=== PATIENT | female | born 1975 | race Caucasian/White ===

== ENCOUNTER 2017-01-02 23:01 | Observation (INO) ==
[2017-01-02] MEDS ORDERED: 0.9 % Sodium Chloride 1,000 ML IV ONE (23:23)
[2017-01-02] MEDS ORDERED: Ondansetron 4 MG/2 ML VIAL IV ONE (23:23)
[2017-01-02] MEDS ORDERED: MetroNIDAZOLE 500 MG/100 ML 500 MG/100 ML BAG IVPB ONE (23:23)
--- NOTE | 2017-01-02 23:34 | Emergency Department Note ---
Disposition Clinical Impression: Colitis, Strangulated omentum Disposition: Admitted As Inpatient Condition: Good Time of Disposition: 02:11 Abdominal Pain HPI - General Chief Complaint: ED Abdominal Pain Stated Complaint: abd pain Time Seen by Provider: 01/02/17 23:11 Source: patient Limitations: no limitations Nursing Notes Reviewed: Yes Vital Signs Reviewed: Yes - History of Present Illness HPI Narrative: 41-year-old female presents to the emergency department for evaluation of abdominal pain. Patient states that she was seen earlier today and was advised to be admitted to the hospital that she had issues at home with her animals and signed out AGAINST MEDICAL ADVICE. Patient was advised to return to the emergency department to be admitted after getting her personal affairs in order. Patient has been having right-sided abdominal pain for a few days. She states she's had increasing loose stools that she has been unable to control. On review of the workup earlier today shows a slightly elevated white blood cell count of 13. CT shows colitis of the right hemicolon and hepatic flexure as well as some areas of incarcerated omentum. Patient was discussed with on- call surgery Dr. Palacios. He states he will see the patient in consultation. The colitis and omental incarceration of fat are not surgical emergencies. He did request to have a consultation placed in the medical record prior to admission. Pt Subjective Complaint: abdominal pain Pain Scale: 9 - Related Data Home Medications Medication Instructions Recorded Confirmed Albuterol Sulfate [Proair Hfa] 2 puff IH Q4H PRN 01/02/17 01/02/17 Amitriptyline [Elavil] 25 mg PO HS 01/02/17 01/02/17 Gabapentin [Neurontin] 800 mg PO QID 01/02/17 01/02/17 Ibuprofen [Motrin] 800 mg PO TID 01/02/17 01/02/17 Olodaterol HCl [Striverdi Respimat] 2 puff IH DAILY 01/02/17 01/02/17 Oxygen 2 l NS HS 01/02/17 01/02/17 Ranitidine HCl [Zantac] 150 mg PO BID 01/02/17 01/02/17 Allergies Allergy/AdvReac Type Severity Reaction Status Date / Time Amoxicillin [From Augmentin] Allergy See Verified 01/02/17 23:07 Comments clavulanic acid Allergy See Verified 01/02/17 23:07 [From Augmentin] Comments All systems ED: reviewed and negative except as stated. Constitutional: Denies: fever Cardiovascular: Denies: chest pain Respiratory: Denies: cough, dyspnea Gastrointestinal: Reports: abdominal pain, nausea. Denies: vomiting Genitourinary: Denies: dysuria, hematuria Abdominal Pain PMH - Past Medical History Medical history: Reports: COPD, other Female Surgical History: Reports: , cholecystectomy, other Psychiatric history: Reports: no psych history - Social History Smoking status: Current every day smoker Alcohol use: Reports: none Drug use: Reports: none Physical Exam - General Limitations: no limitations General appearance: alert, in no apparent distress - Head Head exam: atraumatic, normocephalic - Eye Eye exam: Present: normal appearance - ENT ENT exam: normal exam, normal oropharynx, mucous membranes moist - Neck Neck exam: Present: normal inspection - Chest Chest inspection: Present: normal inspection, symmetric chest wall rise. Absent : tenderness - Respiratory Respiratory exam: Present: normal lung sounds bilaterally. Absent: respiratory distress - Cardiovascular Cardiovascular exam: Present: regular rate, normal rhythm, normal heart sounds - Abdominal Exam Abdominal exam: Present: tenderness, normal bowel sounds. Absent: distention, guarding, rebound, rigidity Abdominal tenderness: Present: RUQ, moderate - Extremities Exam Extremities exam: Present: normal inspection, full ROM. Absent: tenderness - Neurological Exam Neurological exam: Present: alert, oriented X3. Absent: motor sensory deficit - Psychiatric Psychiatric exam: Present: normal affect, normal mood - Skin Skin exam: Present: warm, dry, intact, normal color. Absent: cyanosis, diaphoresis Course - Reevaluation(s) Reevaluation #1: Discussed case with hospitalist service. Patient accepted for further evaluation. Requested collection of stool be sent for C. difficile. Patient stable at time of disposition. Time: 02:11 Vital Signs Temperature 98.5 F 01/02/17 23:03 Pulse Rate 95 01/02/17 23:03 Respiratory Rate 18 01/02/17 23:03 Blood Pressure 121/86 01/02/17 23:03 O2 Sat by Pulse Oximetry 94 L 01/02/17 23:03 Temperature 99.2 F 01/03/17 05:05 Pulse Rate 94 01/03/17 05:05 Respiratory Rate 15 01/03/17 05:05 Blood Pressure 104/67 01/03/17 05:05 O2 Sat by Pulse Oximetry 91 L 01/03/17 05:05 Oxygen Delivery Oxygen Delivery Nasal Cannula Attestation Statement - Attestation Attestation: I, Burke Pedraza MD, personally performed a history and physical exam of the patient and discussed their management with the resident. I reviewed the resident's note and agree with the documented findings, medical decision making , and plan of care. 41-year-old female presents to the emergency department with a complaint of right upper quadrant abdominal pain which started 2-3 days prior to arrival but was mild initially. The pain became much more severe today. She was seen here in the emergency department earlier today and had a CT scan of the abdomen along with a complete workup. She was found to have some colitis as well as a right upper abdominal ventral hernia with some incarcerated fat within the hernia. Surgery was consulted and admission was recommended however patient refused to stay at the time because she had to make arrangements for care of her dogs. She returns tonight with continued right upper quadrant pain which she states is getting steadily worse. Examination patient is a well-developed well-nourished female in no acute distress. She is alert and oriented 3. There is no cyanosis or diaphoresis. Breath sounds are clear and equal bilaterally. Heart regular rate and rhythm. Abdomen is moderately tender in the right upper quadrant with a firm tender masslike area in the right upper quadrant. Bowel sounds present. The hospitalist, Dr. Armijo, was consulted and accepted admission of the patient.
[2017-01-02] MEDS ORDERED: *HR* FentaNYL (PF) 100 MCG/2 ML VIAL IV ONE (23:46)
[2017-01-03] MEDS ORDERED: *HR* Promethazine 25 MG/ML VIAL IVP PRN (03:36)
[2017-01-03] MEDS ORDERED: Acetaminophen 325 MG TABLET PO PRN (03:36)
[2017-01-03] MEDS ORDERED: Naloxone 0.4 MG/ML INJ IVP PRN (03:36)
[2017-01-03] MEDS ORDERED: Pantoprazole 40 MG VIAL IVP STA (03:36)
[2017-01-03] MEDS ORDERED: Albuterol 2.5 MG/3 ML NEBULIZER IH PRN (03:43)
[2017-01-03] MEDS ORDERED: 0.9 % Sodium Chloride 1,000 ML IVC SCH (03:45)
[2017-01-03] MEDS ORDERED: Benzonatate 100 MG CAPSULE PO PRN (03:45)
[2017-01-03] MEDS: *HR* HYDROmorphone (PF) 1 MG/ML SYRINGE IVP PRN ×3 (04:27→12:24)
[2017-01-03] MEDS: Ipratropium/Albuterol Neb 3 ML IH SCH ×2 (05:00→11:41)
--- NOTE | 2017-01-03 05:04 | Internal Med History&Physical ---
<JacobsenMaria Ines Minerva - Last Filed: 01/03/17 05:41> Date of Encounter: 01/03/17 Time of Encounter: 03:30 Assessment and Plan (1) Hernia Current visit: No Status: Acute Patient with history of [address] with evidence of colitis involving ascending colon and hepatic flexure -right lateral ventral hernia is edematous fat and possibly incarcerated omentum -Small midline incisional hernia containing fat and a knuckle of small bowel Pain management Surgery consult (2) Colitis Current visit: Yes Status: Acute Continue IV hydration We will treat with Cipro and Flagyl Zofran prn C. difficile toxin screen, pending Stool culture, pending Ova and parasites, pending (3) Leukocytosis Current visit: Yes Status: Acute WBC 13.3 Lactate, pending Cultures, pending Continue hydration Qualifiers: Leukocytosis type: unspecified Qualified Code(s): D72.829 - Elevated white blood cell count, unspecified (4) COPD (chronic obstructive pulmonary disease) Current visit: Yes Status: Acute Continue supplemental oxygen Albuterol nebulizer prn Smoking cessation discussed Qualifiers: COPD type: unspecified COPD Qualified Code(s): J44.9 - Chronic obstructive pulmonary disease, unspecified (5) Acute kidney injury Current visit: Yes Status: Acute Creatinine 1.41 Creatinine 0.74 on 09/30/2016 IV hydration Follow renal function (6) Tobacco use disorder Current visit: Yes Status: Acute Discussed smoking cessation Continuous oxygen supplementation Continuous pulse oximetry NicoDerm patch 21 mg (7) DVT prophylaxis Current visit: Yes Status: Acute Heparin 5000 units twice a day Internal Medicine - H&P: HPI Chief complaint: Abdominal pain, nausea, vomiting, diarrhea Admitted From: Emergency Dept Plans for Post Hospital Care: Home History of present illness: Ms. Us is a 41 year old female who presents to the hospital with a two- day history of abdominal pain. Pain began around 7:30 AM and was rated a 2 out of 10. Patient tried ibuprofen 800 mg every 6 hours and Tylenol every 4 hours for the pain. Pain felt like a soreness in the right abdomen. Pain spread from right abdomen into right lower quadrant. Patient states that the abdomen feels like it is "jarring loose". Pain is worsened with cough. It is improved with pain medicine. Yesterday morning patient states that the pain continued to worsen. And by 11 AM the pain reached a threshold of 9/10. Patient states that she came to the emergency department, was evaluated, but had to take care of her 2 normal puppies before being admitted. Patient signed out AMA and then returned for admission. Patient admits diaphoresis, nausea, vomiting, diarrhea, mucus in stool. Denies fever or chills. Denies sick contacts or recent hospitalizations. Past Med Surg Social Fam HX - Past Medical History Medical history: COPD, other (Neuropathy, insomnia, back pain) Psychiatric history: no psych history - Past Surgical History Surgical History: (3), cholecystectomy, herniorrhaphy (2 umbilical hernia repairs, one hernia repair at site of ), orthopedic, other ( Back surgeries 2) - Social History Smoking Status: Current every day smoker (1 pack per day 25 years) Smokeless Tobacco Status: No Alcohol use: none Drug use: none Current living situation: Home - Independent Activity Level: Independent ambulation - Family History Mother Living Status: Age at : 64 Cause of : lung cancer Hx Family Cardiac Disorders: No Hx Family Respiratory Disorders: Yes (lung cancer) Hx Family Cancer: Yes (lung cancer) Hx Family GI Disorders: No Hx Family Genitourinary Disorders: No Hx Family Endocrine Disorder: No Hx Family Musculoskeletal Disorders: No Hx Family Neuromuscular Disorders: No Hx Family Neurologic Disorders: No Hx Family HEENT Disorders: No Hx Family Autoimmune Disorders: No Hx Family Reproductive Disorders: No Hx Family Psychosocial Disorders: No Hx Family Medical Disorders: No Father Age: 72 Living Status: Still Living Hx Family Cardiac Disorders: Yes (high blood pressure) Hx Family Respiratory Disorders: No Hx Family Cancer: No Hx Family GI Disorders: No Hx Family Genitourinary Disorders: No Hx Family Endocrine Disorder: No Hx Family Musculoskeletal Disorders: No Hx Family Neuromuscular Disorders: No Hx Family Neurologic Disorders: No Hx Family HEENT Disorders: No Hx Family Autoimmune Disorders: No Hx Family Reproductive Disorders: No Hx Family Psychosocial Disorders: No Hx Family Medical Disorders: No Internal Medicine - H&P: Meds Albuterol Sulfate [Proair Hfa] 2 puff IH Q4H PRN 01/02/17 [History] Amitriptyline [Elavil] 25 mg PO HS 01/02/17 [History] Gabapentin [Neurontin] 800 mg PO QID 01/02/17 [History] Ibuprofen [Motrin] 800 mg PO TID 01/02/17 [History] Olodaterol HCl [Striverdi Respimat] 2 puff IH DAILY 01/02/17 [History] Oxygen 2 l NS HS 01/02/17 [History] Ranitidine HCl [Zantac] 150 mg PO BID 01/02/17 [History] Allergies Amoxicillin [From Augmentin] Allergy (Verified 01/02/17 23:07) See Comments clavulanic acid [From Augmentin] Allergy (Verified 01/02/17 23:07) See Comments All Systems PM: A 10-system review of systems was performed and is negative for pertinent findings except as documented above in the HPI. - Constitutional Constitutional: excessive sweating, no chills, no fever(s) - EENT Eyes: no blurry vision - Respiratory Respiratory: cough, dyspnea (on 2 L of home oxygen. Patient states that she only uses oxygen at night despite being prescribed oxygen for use throughout day.) - Gastrointestinal Gastrointestinal: diarrhea (Stool has been oozing of rectum. She states that when she wipes after urinating she finds stool.), loose stools, nausea, vomiting , no hematochezia - Genitourinary Genitourinary: no dysuria, no hematuria - Musculoskeletal Musculoskeletal ROS IM: no muscle cramps, no myalgias - Neurological Neurological ROS: no dizziness, no headache(s) - Constitutional Vitals: Temp Pulse Resp BP Pulse Ox 0 F L 88 16 124/80 92 L 01/03/17 02:29 01/03/17 00:16 01/03/17 02:29 01/03/17 02:29 01/03/17 00:16 General appearance: Present: cooperative, A&O X 3, morbidly obese, pleasant, answers questions appropriately - Head Head exam: Present: atraumatic, normal inspection, normocephalic - Eye Eye exam: Present: EOMI - ENT ENT exam: Present: mucous membranes dry - Neck Neck exam general surgery: Present: full ROM, normal inspection - Respiratory Respiratory exam: Present: prolonged expiratory phase, wheezes (All lung otto) . Absent: CTAB, rhonchi Additional comments: Hoarse voice - Cardiovascular Cardiovascular exam: Present: RRR, +S1, +S2 - GI/Abdominal GI/Abdominal exam: Present: hypoactive bowel sounds, rebound, soft (With the exception of 5 cm mass in right abdomen that was exquisitely tender to palpation ), tenderness - Extremities Exam Extremities exam: Present: normal inspection. Absent: pedal edema - Psychiatric Psychiatric exam: Present: normal affect, normal mood - Skin Skin exam: Present: dry, warm Internal Med - H&P Results - Labs Labs: Laboratory Results - last 24 hr 01/03/17 04:11 PT 10.3 INR 1.0 - Impressions CT abdomen and pelvis without contrast Read by Matt John MD 01/02/17 Short segment acute colitis ascending colon and hepatic flexure Small adjacent right lateral ventral hernia containing edematous fat possibly incarcerated omental fat Small midline umbilical or incisional hernia containing fat and a knuckle of small bowel. Fat within the hernia appears edematous and may be incarcerated - Attending Attestation I examined this patient and my medical decision-making was reviewed with the GEOGRAPHIC INFORMATION SYSTEMS MANAGER/PA/Advanced Practice Nurse/Resident Physician. I agree with the documented findings, disposition and treatment plan as described except to the extent set forth below. <AleksanderErnesto Jerardo - Last Filed: 01/03/17 06:25> Date of Encounter: 01/03/17 Assessment and Plan (1) Intractable nausea and vomiting Current visit: Yes Status: Acute . Qualifiers: Vomiting type: cyclical vomiting Qualified Code(s): G43.A1 - Cyclical vomiting, intractable (2) Enterocolitis Current visit: Yes Status: Acute . (3) Infectious diarrheal disease Current visit: Yes Status: Acute . (4) Acute abdominal pain syndrome Current visit: Yes Status: Acute . (5) Neutrophilic leukocytosis Current visit: Yes Status: Acute (6) Acute kidney injury superimposed on CKD Current visit: Yes Status: Acute . (7) Dehydration with hyponatremia Current visit: Yes Status: Acute . (8) Obesity (BMI 30-39.9) Current visit: Yes Status: Chronic . (9) Incarcerated incisional hernia Current visit: Yes Status: Acute . (10) COPD (chronic obstructive pulmonary disease) with emphysema Current visit: Yes Status: Chronic . Qualifiers: Emphysema type: unspecified Qualified Code(s): J43.9 - Emphysema, unspecified (11) Nicotine dependence with nicotine-induced disorder Current visit: Yes Status: Chronic . Qualifiers: Nicotine product type: cigarettes Qualified Code(s): F17.219 - Nicotine dependence, cigarettes, with unspecified nicotine-induced disorders (12) Tobacco use disorder Current visit: Yes Status: Acute (13) Infectious gastroenteritis and colitis, unspecified Current visit: Yes Status: Acute . (14) Chronic respiratory failure with hypoxia and hypercapnia Current visit: Yes Status: Chronic . Internal Medicine - H&P: HPI History of present illness: Ms. Us is a 41 year old female The patient was visited and interviewed and examined. I examined this patient and my medical decision-making was reviewed with the Resident Physician. For this encounter, I have reviewed the documentation, treatment plan, and medical decision making; and I have had face to face time with this patient. I agree with the documented findings, disposition and treatment plan as described except to the extent set forth below. Cumulative Laboratory and radiographic data base was reviewed and considered and discussed. Pertinent ancillary medical records including ECW and PCI documentation, when available, was reviewed and considered. Given the patient's presenting concerns, past medical history, clinical findings and symptoms, she is admitted at this time to undergo further evaluation and disposition. Orders were written as per the computerized physician order editor system........................ Past Med Surg Social Fam HX - Past Medical History Source: old records reviewed Medical history: GERD - Past Surgical History Surgical History: other All Systems PM: A 10-system review of systems was performed and is negative for pertinent findings except as documented above in the HPI. - Constitutional Vitals: Temp Pulse Resp BP Pulse Ox 99.2 F 94 15 104/67 91 L 01/03/17 05:05 01/03/17 05:05 01/03/17 05:05 01/03/17 05:05 01/03/17 05:05 Internal Med - H&P Results - ABG Interpretation ABG results: 01/03/17 04:11 VBG pH 7.36 VBG pCO2 53 H VBG pO2 145 H VBG HCO3 29.9 H - Impressions Vital Signs Temp Pulse Resp BP Pulse Ox 01/03/17 05:05 99.2 F 94 15 104/67 91 L 01/03/17 05:00 18 95 01/03/17 03:03 97.6 F 85 14 111/75 100 01/03/17 02:29 0 F L 16 124/80 01/03/17 00:16 88 18 130/88 92 L 01/02/17 23:03 98.5 F 95 18 121/86 94 L Intake and Output 01/02/17 01/02/17 01/03/17 15:59 23:59 07:59 Intake Total 1100 / 1100 Balance 1100 / 1100 Intake: IV Fluids 1100 / 1100 0.9 % Sodium Chloride 1, 1000 / 1000 000 ML @ 3750 mls/hr IV BOLUS ONE Rx#:[id number] Flagyl 500 MG/100 ML 500 100 / 100 mg In 100 ml @ 100 mls/hr IVPB ONCE ONE Rx#: [id number] Other: Weight 89.811 kg 01/03/17 04:11 VBG pH 7.36 VBG pCO2 53 H VBG pO2 145 H VBG HCO3 29.9 H Abnormal lab results ESR 44 mm/hr (0-15) H 01/03/17 04:11 VBG pCO2 53 mmHg (41-51) H 01/03/17 04:11 VBG pO2 145 mmHg (25-40) H 01/03/17 04:11 VBG HCO3 29.9 mEq/L (21-27) H 01/03/17 04:11 C-Reactive Protein 177 mg/L (Less than 5) H 01/03/17 04:11 HDL Cholesterol 38 mg/dL (40-59) L 01/03/17 04:11 Allergies Allergy/AdvReac Type Severity Reaction Status Date / Time Amoxicillin [From Augmentin] Allergy See Verified 01/02/17 23:07 Comments clavulanic acid Allergy See Verified 01/02/17 23:07 [From Augmentin] Comments Laboratory Results ESR 44 mm/hr (0-15) H 01/03/17 04:11 PT 10.3 Seconds (9.4-12.1) 01/03/17 04:11 INR 1.0 01/03/17 04:11 APTT 27.6 Seconds (26.0-36.0) 01/03/17 04:11 VBG pH 7.36 pH Units (7.32-7.42) 01/03/17 04:11 VBG pCO2 53 mmHg (41-51) H 01/03/17 04:11 VBG pO2 145 mmHg (25-40) H 01/03/17 04:11 VBG HCO3 29.9 mEq/L (21-27) H 01/03/17 04:11 Est Mean Plasma Glucose 108 mg/dl 01/03/17 04:11 Hemoglobin A1c 5.4 % (-5.6) 01/03/17 04:11 Lactic Acid 0.6 mmol/L (0.5-2.2) 01/03/17 05:24 Phosphorus 2.9 mg/dL (2.3-4.7) 01/03/17 04:11 Magnesium 2.1 mg/dL (1.6-2.6) 01/03/17 04:11 C-Reactive Protein 177 mg/L (Less than 5) H 01/03/17 04:11 Triglycerides 86 mg/dL (< 150) 01/03/17 04:11 Cholesterol 111 mg/dL (< 200) 01/03/17 04:11 LDL Cholesterol, Calc 56 mg/dL (0-99) 01/03/17 04:11 VLDL Cholesterol, Calc 17 mg/dL (< 31) 01/03/17 04:11 HDL Cholesterol 38 mg/dL (40-59) L 01/03/17 04:11 Cholesterol/HDL Ratio 2.9 (0-4.9) 01/03/17 04:11 TSH 0.415 mcIU/mL (0.350-4.840) 01/03/17 04:11 - Attending Attestation My signature below is to certify that this patient is under my care and that I, or the Resident Physician working with me, has had a prfn-ol-droy encounter with this patient. Plan of care has been reviewed and discussed in detail with the patient. Questions addressed. Advance care directive discussion briefly address. Patient does not declare any healthcare restrictions at this time. Outpatient medication schedules will be reviewed, confirmed and facilitated as appropriate. Reconciliation of home treatments including adjustments, substitutions and reintroduction into the treatment regimen will address necessary maintenance therapies for chronic existing medical conditions. Smoking cessation counseling briefly address. Patient accepts nicotine substitution during this admission. Hospital course will be dependent on clinical findings, treatment response and potential consultative interventions. The patient is at risk for further acute clinical decline and morbidity given this presenting chief complaint, clinical findings and associated comorbidities. Condition is serious. Prognosis is cautiously optimistic. CODE STATUS is full.
[2017-01-03 05:16] LABS: Prothrombin Time 10.3 Seconds (9.4-12.1)
[2017-01-03 05:19] LABS: Activated Partial Thrombo Time 27.6 Seconds (26.0-36.0)
[2017-01-03 05:20] LABS: VBG HCO3 29.9 mEq/L (21-27); VBG PH 7.36 pH Units (7.32-7.42)
[2017-01-03 05:28] LABS: Hemoglobin A1C 5.4 %
[2017-01-03 05:33] LABS: Chol/HDL Ratio 2.9 (0-4.9); Magnesium 2.1 mg/dL (1.6-2.6); Phosphorous 2.9 mg/dL (2.3-4.7)
[2017-01-03] MEDS ORDERED: Famotidine 20 MG/2 ML VIAL IVP SCH (06:00)
[2017-01-03] MEDS ORDERED: *HR* Heparin 5,000 UNIT/ML VIAL SQ SCH (07:00)
[2017-01-03] MEDS: *HR* OxyCODONE Immed Rel 5 MG TABLET PO PRN ×2 (07:37→13:43)
[2017-01-03] MEDS: Gabapentin 400 MG CAPSULE PO SCH ×2 (07:38→12:23)
[2017-01-03] MEDS ORDERED: MetroNIDAZOLE 500 MG/100 ML 500 MG/100 ML BAG IVPB SCH (08:00)
--- NOTE | 2017-01-03 08:01 | Internal Med Progress Note ---
Date of Encounter: 01/03/17 Time of Encounter: 08:01 - Constitutional Vitals: Temp Pulse Resp BP Pulse Ox 99.1 F 67 17 104/69 96 01/03/17 06:45 01/03/17 06:45 01/03/17 06:45 01/03/17 06:45 01/03/17 07:00 General appearance: Present: cooperative, A&O X 3, morbidly obese, pleasant, answers questions appropriately Internal Medicine: Result - ABG Interpretation ABG results: PT/INR, D-dimer PT 10.3 Seconds (9.4-12.1) 01/03/17 04:11 Consult Discharge Plan - Plan Referrals: Abdoul Lara DO [Primary Care Provider] -
[2017-01-03] MEDS ORDERED: Nicotine 21 MG PATCH.TD24 TD SCH (09:00)
[2017-01-03 10:19] VITALS: BP 128/97
--- NOTE | 2017-01-03 10:22 | General Surgery Consult Note ---
Date of Encounter: 01/03/17 Time of Encounter: 10:15 Assessment and Plan (1) Incarcerated incisional hernia Current Visit: Yes Status: Acute The previously repaired midline hernia has a smaller area of recurrence containing fat. There is no involvement of small bowel. There is no evidence of bowel obstruction associated with the hernia. The midline incisional hernia is noncontributory to the patient's acute episode of right-sided colitis (2) Colitis Current Visit: Yes Status: Acute The patient has right sided colitis. The differential diagnosis includes autoimmune, infectious, ischemic colitis. I will be glad to follow along with you during the differential diagnosis and provide any surgical treatment should this become necessary. History of Present Illness Consult date: 01/03/17 History of present illness: The patient is a obese 41-year-old female who has experienced worsening right- sided abdominal pain over the last several days. Pain got to the point where she required narcotic to control the discomfort. She presented to the emergency room and a CAT scan demonstrated colitis as well as evidence of previous abdominal wall hernias. She is admitted to the hospital for close clinical follow-up and differential diagnosis of acute right sided colitis. She has not previously had abdominal pain of this type. She has no nausea or vomiting. Past Med Surg Social Fam HX - Past Medical History Medical history: COPD, other Psychiatric history: no psych history - Past Surgical History Surgical History: other - Social History Smoking Status: Current every day smoker Smokeless Tobacco Status: No Alcohol use: none Drug use: none - Family History Mother Living Status: Age at : 64 Cause of : lung cancer Hx Family Cardiac Disorders: No Hx Family Respiratory Disorders: Yes (lung cancer) Hx Family Cancer: Yes (lung cancer) Hx Family GI Disorders: No Hx Family Genitourinary Disorders: No Hx Family Endocrine Disorder: No Hx Family Musculoskeletal Disorders: No Hx Family Neuromuscular Disorders: No Hx Family Neurologic Disorders: No Hx Family HEENT Disorders: No Hx Family Autoimmune Disorders: No Hx Family Reproductive Disorders: No Hx Family Psychosocial Disorders: No Hx Family Medical Disorders: No Father Age: 72 Living Status: Still Living Hx Family Cardiac Disorders: Yes (high blood pressure) Hx Family Respiratory Disorders: No Hx Family Cancer: No Hx Family GI Disorders: No Hx Family Genitourinary Disorders: No Hx Family Endocrine Disorder: No Hx Family Musculoskeletal Disorders: No Hx Family Neuromuscular Disorders: No Hx Family Neurologic Disorders: No Hx Family HEENT Disorders: No Hx Family Autoimmune Disorders: No Hx Family Reproductive Disorders: No Hx Family Psychosocial Disorders: No Hx Family Medical Disorders: No Medications and Allergies Albuterol Sulfate [Proair Hfa] 2 puff IH Q4H PRN 01/02/17 [History] Amitriptyline [Elavil] 25 mg PO HS 01/02/17 [History] Gabapentin [Neurontin] 800 mg PO QID 01/02/17 [History] Ibuprofen [Motrin] 800 mg PO TID 01/02/17 [History] Olodaterol HCl [Striverdi Respimat] 2 puff IH DAILY 01/02/17 [History] Oxygen 2 l NS HS 01/02/17 [History] Ranitidine HCl [Zantac] 150 mg PO BID 01/02/17 [History] Allergies Amoxicillin [From Augmentin] Allergy (Verified 01/02/17 23:07) See Comments clavulanic acid [From Augmentin] Allergy (Verified 01/02/17 23:07) See Comments Review of Systems All systems PM: A 10-system review of systems was performed and is negative for pertinent findings except as documented above in the HPI. No additional findings for complete review of systems. General Surgery Exam Initial Vital Signs Temp Pulse Resp BP Pulse Ox 98.5 F 95 18 121/86 94 L 01/02/17 23:03 01/02/17 23:03 01/02/17 23:03 01/02/17 23:03 01/02/17 23:03 - General physical appearance well developed, well nourished, no distress, obese - Neck no masses, no bruits, trachea midline, no lymphadectomy, no venous distension - Respiratory wheezing: bilateral (Decreased breath sounds as well as coarse rhonchi bilaterally) - Cardiovascular Cardiovascular exam: Present: RRR, 15, 16 - Abdomen Abdomen general surgery: Present: tender (The patient has pain to moderate palpation with involuntary guarding in the right upper quadrant.) Abdominal Tenderness: Present: RUQ - Neurologic Present: CN 2-12 grossly intact, normal coordination, normal sensation - Psychiatric Psychiatric general surgery: Present: appropriate, oriented to person, oriented to place, oriented to time, speech is normal, memory intact Exam Initial Vital Signs Temp Pulse Resp BP Pulse Ox 98.5 F 95 18 121/86 94 L 01/02/17 23:03 01/02/17 23:03 01/02/17 23:03 01/02/17 23:03 01/02/17 23:03 Results - Labs Abnormal lab results ESR 44 mm/hr (0-15) H 01/03/17 04:11 VBG pCO2 53 mmHg (41-51) H 01/03/17 04:11 VBG pO2 145 mmHg (25-40) H 01/03/17 04:11 VBG HCO3 29.9 mEq/L (21-27) H 01/03/17 04:11 C-Reactive Protein 177 mg/L (Less than 5) H 01/03/17 04:11 HDL Cholesterol 38 mg/dL (40-59) L 01/03/17 04:11 Diabetes panel 01/03/17 01/03/17 Range/Units 04:11 04:11 Hemoglobin A1c 5.4 ( - 5.6) % Triglycerides 86 (< 150) mg/dL HDL Cholesterol 38 L (40-59) mg/dL Thyroid panel 01/03/17 Range/Units 04:11 TSH 0.415 (0.350-4.840) mcIU/mL Calcium panel 01/03/17 Range/Units 04:11 Phosphorus 2.9 (2.3-4.7) mg/dL Pituitary panel 01/03/17 Range/Units 04:11 TSH 0.415 (0.350-4.840) mcIU/mL All other labs normal. - Imaging CT scan - abdomen: image reviewed (I personally reviewed the CAT scan of the abdomen. The patient does have right sided colitis. She has a small fat- containing hernia in the right upper quadrant and a small recurrent fat- containing midline incisional hernia containing fat only with no associated bowel obstruction. The 2 hernias do not appear to be involved with the inflammatory process involving the right colon.) Consult Discharge Plan - Plan Referrals: Abdoul Lara DO [Primary Care Provider] -
--- NOTE | 2017-01-03 16:11 | Discharge Summary ---
<Matt Baislio - Last Filed: 01/03/17 16:16> Date of Encounter: 01/03/17 Time of Encounter: 16:06 - Discharge Diagnosis (1) Left against medical advice Priority: Primary Status: Acute (2) Hernia Priority: Primary Status: Acute (3) Acute kidney injury Priority: Primary Status: Acute (4) Colitis Priority: Primary Status: Acute (5) COPD (chronic obstructive pulmonary disease) Priority: Secondary Status: Acute Qualifiers: COPD type: unspecified COPD Qualified Code(s): J44.9 - Chronic obstructive pulmonary disease, unspecified (6) Obesity (BMI 30-39.9) Priority: Secondary Status: Chronic (7) DVT prophylaxis Priority: Secondary Status: Acute - Discharge Medications Prescriptions: Ciprofloxacin HCl [Cipro] 500 mg PO BID 10 Days MetroNIDAZOLE [Flagyl] 500 mg PO TID 10 Days OxyCODONE Immed Rel [Roxicodone 5 MG] 10 mg PO Q6HR PRN #15 tablet PRN Reason: Moderate Pain (4-6) Home Medications: Albuterol Sulfate [Proair Hfa] 2 puff IH Q4H PRN 01/02/17 [History] Amitriptyline [Elavil] 25 mg PO HS 01/02/17 [History] Gabapentin [Neurontin] 800 mg PO QID 01/02/17 [History] Olodaterol HCl [Striverdi Respimat] 2 puff IH DAILY 01/02/17 [History] Oxygen 2 l NS HS 01/02/17 [History] Ranitidine HCl [Zantac] 150 mg PO BID 01/02/17 [History] Ciprofloxacin HCl [Cipro] 500 mg PO BID 10 Days 01/03/17 [Rx] MetroNIDAZOLE [Flagyl] 500 mg PO TID 10 Days 01/03/17 [Rx] OxyCODONE Immed Rel [Roxicodone 5 MG] 10 mg PO Q6HR PRN #15 tablet 01/03/17 [Rx] Allergies/Adverse Reactions: Allergies Amoxicillin [From Augmentin] Allergy (Verified 01/02/17 23:07) See Comments clavulanic acid [From Augmentin] Allergy (Verified 01/02/17 23:07) See Comments Procedures/tests Complete & Pending: Procedures Performed prior 72 hours Category Date Time Status ECG 12 lead ECG [ECG] AM 0600 Y 01/03/17 06:00 Ordered Date of admission: 01/03/17 02:13 Primary care physician: Abdoul Lara Consults: 01/03/17 03:43 Consult to Nurse Navigator [CONS] Routine Comment: Discharging clinician: Matt Basilio Anticipated date of discharge: 01/03/17 - Patient Status Disposition: Home, Self-Care Condition: Serious Functional capacity at discharge: bed bound Overall status at discharge: patient is not back to baseline - Discharge Instructions Follow Up With: Dejan Palacios MD [Partnered Physician] - (Please schedule an appointment for hospital d/c f/u (pt left AMA) for incarcerated incisional hernia. Web Request sent 01/03/17.) Abdoul Lara DO [Primary Care Provider] - (F/u with her PCP w/in a week for hospital d/c f/u (pt left AMA), colitis and DAVID. Patient will call primary for follow up non [facility] provider. ) - Diet and Activity Activity: other (bed rest) Diet: other (bowel rest for now, when symptoms get better, start with clear liquid diet) Hospital course: Ms. Us is a 41 year old female with hx of COPD and prior 2 hernia repairs came to the ER with cc of right sided abd pain, CT abd showed evidence of colitis involving ascending colon and hepatic flexure, right lateral ventral hernia is edematous fat and possibly incarcerated omentum, and small midline incisional hernia containing fat and a knuckle of small bowel. She was started on cipro and flagyl IV for the treatment, surgery was consulted, she was made NPO with IV fluid, lab showed elevated inflammatory markers along with DAVID. Surgery saw the pt next day and thought that no surgery is necessary at this time, no involvement of small bowel nor bowel obstruction associated with hernia , while we were working on her colitis, she signed the against medical advice from and left AMA for personal reason that she does not wish to share with us. All the risks and consequences of leaving AMA were explained to pt such as perforated bowel from colitis, septic shock and even , pt showed understandings and still wanted to leave AMA. PO abxs prescriptions were given and appropriate follow-up will be made with her PCP and surgery. - Time Spent with Patient Total time spent providing and/or coordinating discharge services: - Constitutional Vitals: Temp Pulse Resp BP Pulse Ox 98.4 F 78 17 128/97 97 01/03/17 10:18 01/03/17 10:18 01/03/17 10:18 01/03/17 10:18 01/03/17 10:18 General appearance: Present: cooperative, A&O X 3, morbidly obese, pleasant, answers questions appropriately - Head Head exam: Present: atraumatic, normocephalic - Eye Eye exam: Present: PERRL, conjuntiva pink, sclera anicteric Pupils: Present: PERRL - Neck Neck exam general surgery: Present: supple, trachea midline. Absent: lymphadenopathy - Respiratory Respiratory exam: Present: CTAB. Absent: accessory muscle use, rales, rhonchi, wheezes - Cardiovascular Cardiovascular exam: Present: RRR, +S1, +S2. Absent: diastolic murmur, gallop, rubs, systolic murmur - GI/Abdominal GI/Abdominal exam: Present: normal bowel sounds, soft, tenderness (to palpation on RLQ), no peritoneal signs. Absent: distended - Extremities Exam Extremities exam: Present: warm, radial pulses palpable and symetrical. Absent : calf tenderness, cyanotic, pedal edema - Neurological Exam Neurological exam: Present: CN II-XII intact, oriented X3, no focal deficits. Absent: pronater drift, facial droop, speech deficit - Skin Skin exam: Present: dry, intact <Keith Venegas R - Last Filed: 01/03/17 18:01> Date of Encounter: 01/03/17 Procedures/tests Complete & Pending: Procedures Performed prior 72 hours Category Date Time Status ECG 12 lead ECG [ECG] AM 0600 Y 01/03/17 06:00 Ordered Date of admission: 01/03/17 02:13 Primary care physician: Abdoul Lara Consults: 01/03/17 03:43 Consult to Nurse Navigator [CONS] Routine Comment: Hospital course: Ms. Us is a 41 year old female - Time Spent with Patient Total time spent providing and/or coordinating discharge services: - Constitutional Vitals: Temp Pulse Resp BP Pulse Ox 98.4 F 78 17 128/97 97 01/03/17 10:18 01/03/17 10:18 01/03/17 10:18 01/03/17 10:18 01/03/17 10:18 - Attending Attestation I examined this patient and my medical decision-making was reviewed with the [facility] SUPERVISOR/PA/Advanced Practice Nurse/Resident Physician. I agree with the documented findings, disposition and treatment plan as described except to the extent set forth below. Patient decided to sign out AMA. She is alert and able to make decisions.
[2017-01-03] MEDS ORDERED: NON-FORMULARY MEDICATION 1 EACH EACH (Oxygen [Oxygen] 2 L) NS SCH (21:00)
== END 2017-01-03 16:16 | disposition left against medical advice (07) ==
LOC: 3ANU 23:01 → EMEROO 23:01 → 3ANU 01-03 02:31
PROVIDERS: ADMIT Internal Medicine; ATTEND Internal Medicine

== ENCOUNTER 2020-04-03 01:47 | Inpatient (IN) ==
[2020-04-03] MEDS ORDERED: Artificial Tears SOLN 15 ML BOTTLE BOTH EYES PRN (07:50)
[2020-04-03] MEDS ORDERED: Naloxone 0.4 MG/ML INJ IVP PRN (07:50)
[2020-04-03] MEDS ORDERED: Aminoglycoside Consult 1 EACH MC ONE (08:15)
[2020-04-03] MEDS: FentaNYL (PF) 1,000 MCG in 0.9 % Sodium Chloride 80 ML IVC SCH ×2 (09:01→18:17)
[2020-04-03] MEDS: Artificial Tears SOLN 15 ML BOTTLE BOTH EYES SCH ×5 (09:02→23:18)
[2020-04-03] MEDS: Norepinephrine 4 MG in 0.9 % Sodium Chloride 250 ML IVC SCH (09:03)
[2020-04-03] MEDS: Cefepime HCl 2,000 MG in Water for inj. (sterile) 20 ML IVP SCH ×3 (09:08→23:18)
[2020-04-03] MEDS: Chlorhexidine Rinse 15 ML MOUTHWASH MM SCH ×2 (09:08→19:30)
[2020-04-03] MEDS: Doxycycline 100 MG in 0.9 % Sodium Chloride Mini Bag 100 ML IVPB SCH ×2 (09:09→18:17)
[2020-04-03] MEDS: Pantoprazole 40 MG VIAL IVP SCH (09:09)
[2020-04-03] MEDS: Budesonide/Formoterol 160/4.5 1 PUFF INH IH SCH ×2 (09:38→22:02)
[2020-04-03 10:01] LABS: ABG Base Excess 9 mEq/L (-2 to 3); ABG HCO3 39 mEq/L (21-27); ABG Oxygen Saturation 91 % (95-98); ABG PCO2 75 mmHg (35-45); ABG PH 7.33 pH Units (7.32-7.45); ABG PO2 69 mmHg (85-104); ABG TCO2 41 mEq/L (20-26); Blood Gas Modality VC; Blood Gas VT 500 cc
[2020-04-03 10:27] LABS: Basophils % 0.1 %; Eosinophils % 0.1 %; Hematocrit 43.6 % (35.3-44.9); Hemoglobin 12.8 g/dL (11.5-15.4); Immature Granulocytes % 0.7 % (0-4); Lymphocytes # 0.8 K/mcL (0.6-4.6); Mean Corpuscular HGB Conc 29.4 g/dL (31.6-35.5); Mean Corpuscular Hemoglobin 30.8 pg (28.0-33.3); Mean Corpuscular Volume 105.1 fL (83.0-100.0); Mean Platelet Volume 10.7 fL (9.4-12.4); Monocytes # 1.1 K/mcL (0.0-1.3); Monocytes % 12.8 %; Neutrophils # 6.8 K/mcL (1.6-8.9); Platelet Count 150 K/mcL (140-400); Red Blood Count 4.15 M/mcL (3.82-4.97); Red Cell Distribution Width 13.9 % (11.5-14.5); Segmented Neutrophils % 77.3 %; White Blood Count 8.8 K/mcL (4.3-11.1)
[2020-04-03 10:47] LABS: Bilirubin,Urine Negative (Negative); Blood,Urine Negative (Negative); Clarity,Urine Clear (Clear); Color,Urine Yellow (Yellow); Glucose,Urine (UA) Normal (Normal); Ketones,Urine Trace mg/dL (Negative); Leukocyte Esterase,Urine Negative (Negative); Nitrite,Urine Negative (Negative); PH,Urine 6.5 pH Units (5.0-8.0); Protein,Urine 100 mg/dL (Neg-Trace); Specific Gravity,Urine 1.024 (1.010-1.025); Urobilinogen,Urine Normal (Normal)
[2020-04-03 10:49] LABS: Troponin I < 0.03 ng/mL (< 0.04)
[2020-04-03 10:50] LABS: Bacteria,Urine Few per hpf (None-Few); Hyaline Casts,Urine Few per lpf (None-Few); Squamous Epithelial Cell,Urine Many per lpf (None-Few); WBC,Urine 0-3 per hpf (0-3)
[2020-04-03 10:59] LABS: Alanine Aminotransferase 12 Units/L (7-52); Albumin 3.4 g/dL (3.5-5.7); Albumin/Globulin Ratio 1.3 (1.1-2.2); Alkaline Phosphatase 48 Units/L (34-104); Aspartate Amino Transferase 24 Units/L (13-39); BUN/Creatinine Ratio 16 (6-26); Bilirubin,Direct 0.1 mg/dL (0.0-0.2); Bilirubin,Indirect 0.2 mg/dL (0.0-1.0); Bilirubin,Total 0.3 mg/dL (0.3-1.0); Blood Urea Nitrogen 15 mg/dL (6-20); Calcium 8.4 mg/dL (8.6-10.3); Carbon Dioxide 38 mEq/L (23-29); Chloride 96 mEq/L (98-107); Globulin 2.7 g/dL (2.4-3.5); Glucose 113 mg/dL (70-105); Granular Casts,Urine Few per lpf (None Seen); Magnesium 1.6 mg/dL (1.6-2.6); Osmolality,Calculated 294 (280-300); Phosphorous 2.6 mg/dL (2.7-4.5); Potassium 4.2 mEq/L (3.5-5.1); Sodium 141 mEq/L (136-145); Total Protein 6.1 g/dL (6.4-8.9); eGFR For African Americans > 60 (> 60); eGFR For Non-African Americans > 60 (> 60)
[2020-04-03 11:02] LABS: Amphetamine Screen,Urine Negative ng/mL (Cutoff=1000); Barbiturate Screen,Urine Negative ng/mL (Cutoff=200); Benzodiazepines Screen,Urine Negative ng/mL (Cutoff=200); Cannabinoid Screen,Urine Negative ng/mL (Cutoff = 50); Cocaine Screen,Urine Negative ng/mL (Cutoff= 300); Opiate Screen,Urine Negative ng/mL (Cutoff=300); Phencyclidine Screen,Urine Negative ng/mL (Cutoff=25)
[2020-04-03] MEDS ORDERED: Potassium Chloride 40 MEQ/200 ML BAG IVPB PRN (11:47)
[2020-04-03] MEDS ORDERED: Potassium Phosphate 44 MEQ in 0.9 % Sodium Chloride 250 ML IVPB PRN (11:47)
[2020-04-03] MEDS ORDERED: Calcium Gluconate 1gm/50mL 1 GM/50 ML BAG IVPB PRN (11:47)
[2020-04-03] MEDS ORDERED: Ipratropium/Albuterol Neb 3 ML ONE (12:56)
[2020-04-03] MEDS: *HR* Heparin 5,000 UNIT/ML VIAL SQ SCH ×2 (13:39→21:09)
[2020-04-03] MEDS ORDERED: Ipratropium/Albuterol Neb 3 ML IH ONE (14:28)
[2020-04-03] MEDS: Acetaminophen 325 MG TABLET PO PRN ×2 (15:34→23:18)
[2020-04-03] MEDS: methylPREDNISolone 125 MG/2 ML VIAL IVP SCH (19:31)
[2020-04-03] MEDS ORDERED: Ipratropium/Albuterol Neb 3 ML IH SCH (22:00)
[2020-04-03] MEDS: Ipratropium/Albuterol Neb 3 ML IH SCH (23:14)
[2020-04-04] MEDS: FentaNYL (PF) 1,000 MCG in 0.9 % Sodium Chloride 80 ML IVC SCH (03:06)
[2020-04-04] MEDS: Artificial Tears SOLN 15 ML BOTTLE BOTH EYES SCH ×5 (03:06→19:32)
[2020-04-04 03:39] LABS: Hematocrit 40.8 % (35.3-44.9); Mean Platelet Volume 11.2 fL (9.4-12.4); Monocytes % 3.1 %
[2020-04-04 03:41] LABS: Basophils % 0.2 %; Hemoglobin 12.2 g/dL (11.5-15.4); Immature Granulocytes % 0.5 % (0-4); Immature Platelets 5.9 % (1.1-6.1); Lymphocytes # 0.5 K/mcL (0.6-4.6); Lymphocytes % 9.5 %; Mean Corpuscular HGB Conc 29.9 g/dL (31.6-35.5); Mean Corpuscular Volume 103.6 fL (83.0-100.0); Monocytes # 0.2 K/mcL (0.0-1.3); Platelet Count 120 K/mcL (140-400); Red Blood Count 3.94 M/mcL (3.82-4.97); Red Cell Distribution Width 14.3 % (11.5-14.5); Segmented Neutrophils % 86.7 %; White Blood Count 5.5 K/mcL (4.3-11.1)
[2020-04-04 03:43] LABS: Neutrophils # 4.8 K/mcL (1.6-8.9)
[2020-04-04 03:59] LABS: Calcium 8.3 mg/dL (8.6-10.3); Magnesium 1.9 mg/dL (1.6-2.6); Phosphorous 3.5 mg/dL (2.7-4.5); Potassium 4.2 mEq/L (3.5-5.1)
[2020-04-04] MEDS: Ipratropium/Albuterol Neb 3 ML IH SCH ×6 (04:02→20:42)
[2020-04-04 04:22] LABS: ABG Base Excess 7 mEq/L (-2 to 3); ABG HCO3 35 mEq/L (21-27); ABG Oxygen Saturation 89 % (95-98); ABG PCO2 66 mmHg (35-45); ABG PH 7.33 pH Units (7.32-7.45); ABG PO2 63 mmHg (85-104); ABG TCO2 37 mEq/L (20-26); Blood Gas VT 550 cc
[2020-04-04] MEDS: Acetaminophen 325 MG TABLET PO PRN (05:27)
[2020-04-04] MEDS: Doxycycline 100 MG in 0.9 % Sodium Chloride Mini Bag 100 ML IVPB SCH ×2 (05:31→16:12)
[2020-04-04] MEDS: *HR* Heparin 5,000 UNIT/ML VIAL SQ SCH ×3 (05:31→19:37)
[2020-04-04] MEDS: methylPREDNISolone 125 MG/2 ML VIAL IVP SCH (05:31)
[2020-04-04] MEDS: Budesonide/Formoterol 160/4.5 1 PUFF INH IH SCH ×2 (07:05→22:01)
[2020-04-04] MEDS: Norepinephrine 4 MG in 0.9 % Sodium Chloride 250 ML IVC SCH (07:38)
[2020-04-04] MEDS: Cefepime HCl 2,000 MG in Water for inj. (sterile) 20 ML IVP SCH ×3 (07:44→23:12)
[2020-04-04] MEDS: Chlorhexidine Rinse 15 ML MOUTHWASH MM SCH ×2 (07:45→19:32)
[2020-04-04] MEDS: Pantoprazole 40 MG VIAL IVP SCH (07:46)
[2020-04-04] MEDS ORDERED: Albuterol 2.5 MG/3 ML NEBULIZER IH PRN (16:08)
[2020-04-04] MEDS ORDERED: Ipratropium/Albuterol Neb 3 ML IH ONE (16:30)
[2020-04-04] MEDS ORDERED: Dexmedetomidine HCl 400 MCG/100 ML MLS IVC ONE (17:44)
[2020-04-04] MEDS: Dexmedetomidine HCl 400 MCG/100 ML MLS IVC SCH ×2 (17:50→23:26)
[2020-04-04] MEDS ORDERED: MethylPREDNISolone 40 MG/ML VIAL IVP SCH (18:00)
[2020-04-04] MEDS: Racepinephrine Neb 0.5 ML VIAL IH SCH (18:06)
[2020-04-04] MEDS: Nystatin SUSP 5 ML UD.LIQ PO SCH (23:12)
[2020-04-05] MEDS: Ipratropium/Albuterol Neb 3 ML IH SCH ×7 (00:04→20:31)
[2020-04-05] MEDS: Dexmedetomidine HCl 400 MCG/100 ML MLS IVC SCH ×2 (04:08→08:55)
[2020-04-05 04:30] LABS: Basophils % 0.1 %; Hematocrit 40.4 % (35.3-44.9); Hemoglobin 11.7 g/dL (11.5-15.4); Immature Granulocytes % 0.7 % (0-4); Lymphocytes # 0.9 K/mcL (0.6-4.6); Lymphocytes % 13.7 %; Mean Corpuscular Hemoglobin 29.9 pg (28.0-33.3); Mean Corpuscular Volume 103.3 fL (83.0-100.0); Mean Platelet Volume 10.9 fL (9.4-12.4); Monocytes # 0.6 K/mcL (0.0-1.3); Monocytes % 8.8 %; Neutrophils # 5.1 K/mcL (1.6-8.9); Platelet Count 138 K/mcL (140-400); Red Blood Count 3.91 M/mcL (3.82-4.97); Segmented Neutrophils % 76.7 %; White Blood Count 6.7 K/mcL (4.3-11.1)
[2020-04-05 04:48] LABS: Platelet Estimate Slight Decrease (Normal)
[2020-04-05 04:49] LABS: BUN/Creatinine Ratio 38 (6-26); Blood Urea Nitrogen 35 mg/dL (6-20); Calcium 8.4 mg/dL (8.6-10.3); Carbon Dioxide 36 mEq/L (23-29); Chloride 99 mEq/L (98-107); Glucose 128 mg/dL (70-105); Osmolality,Calculated 298 (280-300); Potassium 4.4 mEq/L (3.5-5.1); Sodium 139 mEq/L (136-145); eGFR For African Americans > 60 (> 60); eGFR For Non-African Americans > 60 (> 60)
[2020-04-05] MEDS: *HR* Heparin 5,000 UNIT/ML VIAL SQ SCH ×3 (06:07→22:57)
[2020-04-05] MEDS: Norepinephrine 4 MG in 0.9 % Sodium Chloride 250 ML IVC SCH (06:07)
[2020-04-05] MEDS: Doxycycline 100 MG in 0.9 % Sodium Chloride Mini Bag 100 ML IVPB SCH ×2 (06:07→16:17)
[2020-04-05] MEDS: Budesonide/Formoterol 160/4.5 1 PUFF INH IH SCH ×2 (07:22→21:06)
[2020-04-05] MEDS: Cefepime HCl 2,000 MG in Water for inj. (sterile) 20 ML IVP SCH ×3 (07:32→22:57)
[2020-04-05] MEDS: Nystatin SUSP 5 ML UD.LIQ PO SCH ×4 (07:33→22:56)
[2020-04-05] MEDS: Pantoprazole 40 MG VIAL IVP SCH (07:33)
[2020-04-05] MEDS ORDERED: predniSONE 20 MG TABLET PO SCH (09:00)
[2020-04-05] MEDS ORDERED: Vancomycin 1,500 MG/265 ML IV.SOLN IVPB SCH (09:00)
[2020-04-05] MEDS ORDERED: Acetaminophen 325 MG TABLET PO PRN (11:52)
[2020-04-05] MEDS ORDERED: Artificial Tears SOLN 15 ML BOTTLE BOTH EYES PRN (11:52)
[2020-04-05] MEDS ORDERED: Naloxone 0.4 MG/ML INJ IVP PRN (11:52)
[2020-04-05] MEDS ORDERED: Albuterol 2.5 MG/3 ML NEBULIZER IH PRN (11:52)
[2020-04-05] MEDS ORDERED: QUEtiapine Fumarate 25 MG TABLET PO SCH (12:00)
[2020-04-05] MEDS: QUEtiapine Fumarate 25 MG TABLET PO SCH ×2 (14:07→22:56)
[2020-04-05] MEDS ORDERED: *HR* Buprenorphine HCl 8 MG TAB.SUBL SL SCH (21:00)
[2020-04-05] MEDS: *HR* Buprenorphine HCl 8 MG TAB.SUBL SL SCH (22:56)
[2020-04-06] MEDS: Ipratropium/Albuterol Neb 3 ML IH SCH ×6 (00:36→19:38)
[2020-04-06] MEDS: Doxycycline 100 MG in 0.9 % Sodium Chloride Mini Bag 100 ML IVPB SCH ×2 (06:39→16:26)
[2020-04-06] MEDS: *HR* Heparin 5,000 UNIT/ML VIAL SQ SCH ×3 (06:39→23:45)
[2020-04-06] MEDS: Budesonide/Formoterol 160/4.5 1 PUFF INH IH SCH ×2 (07:32→19:38)
[2020-04-06] MEDS: Nystatin SUSP 5 ML UD.LIQ PO SCH ×4 (08:36→21:36)
[2020-04-06] MEDS: QUEtiapine Fumarate 25 MG TABLET PO SCH ×2 (08:37→21:36)
[2020-04-06] MEDS: Cefepime HCl 2,000 MG in Water for inj. (sterile) 20 ML IVP SCH ×3 (08:37→23:44)
[2020-04-06] MEDS: *HR* Buprenorphine HCl 8 MG TAB.SUBL SL SCH ×2 (08:37→21:36)
[2020-04-06] MEDS: predniSONE 20 MG TABLET PO SCH (08:37)
[2020-04-06] MEDS ORDERED: Pantoprazole 40 MG VIAL IVP SCH (09:00)
[2020-04-06 19:01] LABS: ABG Base Excess 7 mEq/L (-2 to 3); ABG HCO3 40 mEq/L (21-27); ABG Oxygen Saturation 91 % (95-98); ABG PCO2 109 mmHg (35-45); ABG PH 7.18 pH Units (7.32-7.45); ABG PO2 82 mmHg (85-104); ABG TCO2 44 mEq/L (20-26); Blood Gas Modality avaps; Blood Gas VT 500 cc
[2020-04-06 20:56] LABS: ABG Base Excess 8 mEq/L (-2 to 3); ABG HCO3 41 mEq/L (21-27); ABG Oxygen Saturation 92 % (95-98); ABG PCO2 111 mmHg (35-45); ABG PH 7.18 pH Units (7.32-7.45); ABG PO2 84 mmHg (85-104); ABG TCO2 45 mEq/L (20-26); Blood Gas Modality avaps; Blood Gas VT 550 cc
[2020-04-06 22:38] LABS: ABG Base Excess 8 mEq/L (-2 to 3); ABG HCO3 41 mEq/L (21-27); ABG Oxygen Saturation 87 % (95-98); ABG PCO2 102 mmHg (35-45); ABG PH 7.21 pH Units (7.32-7.45); ABG PO2 69 mmHg (85-104); ABG TCO2 44 mEq/L (20-26); Blood Gas Modality avaps; Blood Gas VT 550 cc
[2020-04-06] MEDS ORDERED: methylPREDNISolone 125 MG/2 ML VIAL IVP ONE (23:30)
[2020-04-07] MEDS: Ipratropium/Albuterol Neb 3 ML IH SCH ×7 (00:40→23:29)
[2020-04-07 00:58] LABS: ABG Base Excess 9 mEq/L (-2 to 3); ABG HCO3 40 mEq/L (21-27); ABG Oxygen Saturation 97 % (95-98); ABG PCO2 85 mmHg (35-45); ABG PH 7.28 pH Units (7.32-7.45); ABG PO2 109 mmHg (85-104); ABG TCO2 42 mEq/L (20-26); Blood Gas Modality avaps; Blood Gas VT 550 cc
[2020-04-07 02:55] LABS: Hemoglobin 12.4 g/dL (11.5-15.4); Red Cell Distribution Width 14.2 % (11.5-14.5)
[2020-04-07 02:57] LABS: Hematocrit 42.2 % (35.3-44.9); Mean Corpuscular HGB Conc 29.4 g/dL (31.6-35.5); Mean Corpuscular Hemoglobin 30.8 pg (28.0-33.3); Mean Corpuscular Volume 104.7 fL (83.0-100.0); Mean Platelet Volume 10.4 fL (9.4-12.4); Platelet Count 152 K/mcL (140-400); Red Blood Count 4.03 M/mcL (3.82-4.97); White Blood Count 3.9 K/mcL (4.3-11.1)
[2020-04-07 03:12] LABS: BUN/Creatinine Ratio 51 (6-26); Blood Urea Nitrogen 43 mg/dL (6-20); Calcium 9.5 mg/dL (8.6-10.3); Carbon Dioxide 39 mEq/L (23-29); Chloride 99 mEq/L (98-107); Glucose 104 mg/dL (70-105); Osmolality,Calculated 305 (280-300); Potassium 4.5 mEq/L (3.5-5.1); Sodium 142 mEq/L (136-145); eGFR For African Americans > 60 (> 60); eGFR For Non-African Americans > 60 (> 60)
[2020-04-07 03:19] LABS: Lymphocytes # 0.7 K/mcL (0.6-4.6); Monocytes # 0.2 K/mcL (0.0-1.3); Neutrophils # 2.9 K/mcL (1.6-8.9); Platelet Estimate Slight Decrease (Normal)
[2020-04-07 03:25] LABS: ABG Base Excess 8 mEq/L (-2 to 3); ABG HCO3 40 mEq/L (21-27); ABG Oxygen Saturation 86 % (95-98); ABG PCO2 94 mmHg (35-45); ABG PH 7.24 pH Units (7.32-7.45); ABG PO2 64 mmHg (85-104); ABG TCO2 43 mEq/L (20-26); Blood Gas Modality AVAPS; Blood Gas Pressure Support 22 cm H2O; Blood Gas VT 550 cc
[2020-04-07 04:54] LABS: ABG Base Excess 8 mEq/L (-2 to 3); ABG HCO3 36 mEq/L (21-27); ABG Oxygen Saturation 85 % (95-98); ABG PCO2 63 mmHg (35-45); ABG PH 7.36 pH Units (7.32-7.45); ABG PO2 55 mmHg (85-104); ABG TCO2 38 mEq/L (20-26); Blood Gas Modality AVAPS; Blood Gas Pressure Support 16 cm H2O; Blood Gas VT 550 cc
[2020-04-07] MEDS: Doxycycline 100 MG in 0.9 % Sodium Chloride Mini Bag 100 ML IVPB SCH ×2 (05:09→17:11)
[2020-04-07] MEDS: *HR* Heparin 5,000 UNIT/ML VIAL SQ SCH ×3 (05:09→21:43)
[2020-04-07] MEDS: Budesonide/Formoterol 160/4.5 1 PUFF INH IH SCH ×2 (07:25→20:12)
[2020-04-07] MEDS: Nystatin SUSP 5 ML UD.LIQ PO SCH ×4 (08:52→21:43)
[2020-04-07] MEDS: Cefepime HCl 2,000 MG in Water for inj. (sterile) 20 ML IVP SCH ×2 (08:52→16:58)
[2020-04-07] MEDS: QUEtiapine Fumarate 25 MG TABLET PO SCH ×2 (08:53→21:43)
[2020-04-07] MEDS: predniSONE 20 MG TABLET PO SCH (08:53)
[2020-04-07] MEDS: atenoloL 25 MG TABLET PO SCH (08:53)
[2020-04-07] MEDS: *HR* Buprenorphine HCl 8 MG TAB.SUBL SL SCH ×2 (12:51→21:45)
[2020-04-08] MEDS: Cefepime HCl 2,000 MG in Water for inj. (sterile) 20 ML IVP SCH ×3 (00:22→16:16)
[2020-04-08] MEDS: Ipratropium/Albuterol Neb 3 ML IH SCH ×5 (03:26→20:25)
[2020-04-08 06:25] LABS: VBG HCO3 41 mEq/L (21-27); VBG PCO2 97 mmHg (41-51); VBG PH 7.23 pH Units (7.32-7.42); VBG PO2 66 mmHg (25-50)
[2020-04-08] MEDS: *HR* Heparin 5,000 UNIT/ML VIAL SQ SCH ×3 (06:25→21:42)
[2020-04-08] MEDS: Doxycycline 100 MG in 0.9 % Sodium Chloride Mini Bag 100 ML IVPB SCH ×2 (06:26→17:39)
[2020-04-08 06:41] LABS: BUN/Creatinine Ratio 56 (6-26); Blood Urea Nitrogen 47 mg/dL (6-20); Calcium 9.8 mg/dL (8.6-10.3); Carbon Dioxide 41 mEq/L (23-29); Chloride 99 mEq/L (98-107); Glucose 88 mg/dL (70-105); Osmolality,Calculated 304 (280-300); Potassium 3.7 mEq/L (3.5-5.1); Sodium 141 mEq/L (136-145); eGFR For African Americans > 60 (> 60); eGFR For Non-African Americans > 60 (> 60)
[2020-04-08 07:03] LABS: ABG Base Excess 9 mEq/L (-2 to 3); ABG HCO3 38 mEq/L (21-27); ABG Oxygen Saturation 93 % (95-98); ABG PCO2 78 mmHg (35-45); ABG PO2 79 mmHg (85-104); ABG TCO2 41 mEq/L (20-26); Blood Gas VT 550 cc
[2020-04-08] MEDS: Budesonide/Formoterol 160/4.5 1 PUFF INH IH SCH ×2 (07:46→20:26)
[2020-04-08] MEDS: atenoloL 25 MG TABLET PO SCH (08:17)
[2020-04-08] MEDS: predniSONE 20 MG TABLET PO SCH (08:17)
[2020-04-08] MEDS: QUEtiapine Fumarate 25 MG TABLET PO SCH ×2 (08:18→21:41)
[2020-04-08] MEDS: Nystatin SUSP 5 ML UD.LIQ PO SCH ×4 (08:19→21:42)
[2020-04-08] MEDS: acetaZOLAMIDE 250 MG TABLET PO SCH (12:18)
[2020-04-08] MEDS: *HR* Buprenorphine HCl 8 MG TAB.SUBL SL SCH ×2 (12:18→21:41)
[2020-04-09] MEDS: Ipratropium/Albuterol Neb 3 ML IH SCH ×7 (00:33→23:50)
[2020-04-09] MEDS: Cefepime HCl 2,000 MG in Water for inj. (sterile) 20 ML IVP SCH ×3 (00:44→15:20)
[2020-04-09] MEDS: Doxycycline 100 MG in 0.9 % Sodium Chloride Mini Bag 100 ML IVPB SCH ×2 (05:27→18:16)
[2020-04-09] MEDS: *HR* Heparin 5,000 UNIT/ML VIAL SQ SCH ×3 (05:27→20:45)
[2020-04-09 05:55] LABS: Basophils % 0.4 %; Eosinophils % 0.2 %; Hematocrit 40.8 % (35.3-44.9); Hemoglobin 12.3 g/dL (11.5-15.4); Immature Granulocytes % 2.5 % (0-4); Lymphocytes # 1.7 K/mcL (0.6-4.6); Lymphocytes % 33.1 %; Mean Corpuscular HGB Conc 30.1 g/dL (31.6-35.5); Mean Corpuscular Volume 99.5 fL (83.0-100.0); Mean Platelet Volume 11.5 fL (9.4-12.4); Monocytes # 0.6 K/mcL (0.0-1.3); Neutrophils # 2.7 K/mcL (1.6-8.9); Platelet Count 158 K/mcL (140-400); Red Cell Distribution Width 13.7 % (11.5-14.5); Segmented Neutrophils % 51.8 %; White Blood Count 5.3 K/mcL (4.3-11.1)
[2020-04-09 06:14] LABS: BUN/Creatinine Ratio 56 (6-26); Blood Urea Nitrogen 45 mg/dL (6-20); Calcium 9.4 mg/dL (8.6-10.3); Carbon Dioxide 36 mEq/L (23-29); Chloride 101 mEq/L (98-107); Glucose 113 mg/dL (70-105); Osmolality,Calculated 306 (280-300); Potassium 3.9 mEq/L (3.5-5.1); Sodium 142 mEq/L (136-145); eGFR For African Americans > 60 (> 60); eGFR For Non-African Americans > 60 (> 60)
[2020-04-09] MEDS: Budesonide/Formoterol 160/4.5 1 PUFF INH IH SCH ×2 (07:27→20:22)
[2020-04-09] MEDS: predniSONE 20 MG TABLET PO SCH (09:12)
[2020-04-09] MEDS: acetaZOLAMIDE 250 MG TABLET PO SCH (09:12)
[2020-04-09] MEDS: QUEtiapine Fumarate 25 MG TABLET PO SCH ×2 (09:12→20:45)
[2020-04-09] MEDS: *HR* Buprenorphine HCl 8 MG TAB.SUBL SL SCH (09:12)
[2020-04-09] MEDS: Nystatin SUSP 5 ML UD.LIQ PO SCH ×4 (09:20→20:46)
[2020-04-09] MEDS: valACYclovir 500 MG TABLET PO SCH (22:28)
[2020-04-10] MEDS: Cefepime HCl 2,000 MG in Water for inj. (sterile) 20 ML IVP SCH ×2 (00:27→09:47)
[2020-04-10] MEDS: *HR* Buprenorphine HCl 8 MG TAB.SUBL SL SCH ×2 (00:28→11:10)
[2020-04-10] MEDS: Ipratropium/Albuterol Neb 3 ML IH SCH ×5 (04:19→16:27)
[2020-04-10] MEDS: *HR* Heparin 5,000 UNIT/ML VIAL SQ SCH ×2 (05:49→12:50)
[2020-04-10] MEDS: Doxycycline 100 MG in 0.9 % Sodium Chloride Mini Bag 100 ML IVPB SCH (05:49)
[2020-04-10 06:46] LABS: BUN/Creatinine Ratio 39 (6-26); Blood Urea Nitrogen 38 mg/dL (6-20); Carbon Dioxide 36 mEq/L (23-29); Chloride 103 mEq/L (98-107); Glucose 103 mg/dL (70-105); Osmolality,Calculated 307 (280-300); Potassium 4.1 mEq/L (3.5-5.1); Sodium 144 mEq/L (136-145); eGFR For African Americans > 60 (> 60); eGFR For Non-African Americans > 60 (> 60)
[2020-04-10] MEDS: Budesonide/Formoterol 160/4.5 1 PUFF INH IH SCH (07:39)
[2020-04-10 07:48] VITALS: BP 159/99
[2020-04-10] MEDS: acetaZOLAMIDE 250 MG TABLET PO SCH (09:50)
[2020-04-10] MEDS: QUEtiapine Fumarate 25 MG TABLET PO SCH (09:50)
[2020-04-10] MEDS: Nystatin SUSP 5 ML UD.LIQ PO SCH ×2 (09:50→12:50)
[2020-04-10] MEDS: predniSONE 20 MG TABLET PO SCH (09:50)
[2020-04-10] MEDS: valACYclovir 500 MG TABLET PO SCH (09:50)
== END 2020-04-10 17:31 | disposition home or self-care (01) | DRG 133 ==
LOC: 2NENU 06:33 → SUATTDRO 07:50 → ICNU 13:22 → 2ANU 04-05 17:36 → 3BNU 04-09 23:05
PROVIDERS: ADMIT Family Medicine; ATTEND Internal Medicine

== ENCOUNTER 2021-04-03 21:20 | Observation (INO) ==
[2021-04-03 23:05] LABS: Basophils % 0.3 %; Eosinophils # 0.3 K/mcL (0.0-0.6); Hematocrit 42.1 % (35.3-44.9); Hemoglobin 12.7 g/dL (11.5-15.4); Immature Granulocytes % 0.3 % (0-4); Immature Platelets 8.6 % (1.1-6.1); Lymphocytes # 1.5 K/mcL (0.6-4.6); Lymphocytes % 20.1 %; Mean Corpuscular HGB Conc 30.2 g/dL (31.6-35.5); Mean Corpuscular Hemoglobin 29.8 pg (28.0-33.3); Mean Corpuscular Volume 98.8 fL (83.0-100.0); Mean Platelet Volume 11.5 fL (9.4-12.4); Monocytes # 0.6 K/mcL (0.0-1.3); Monocytes % 7.7 %; Neutrophils # 4.9 K/mcL (1.6-8.9); Platelet Count 218 K/mcL (140-400); Red Blood Count 4.26 M/mcL (3.82-4.97); Red Cell Distribution Width 12.8 % (11.5-14.5); Segmented Neutrophils % 67.6 %; White Blood Count 7.3 K/mcL (4.3-11.1)
[2021-04-03 23:20] LABS: BUN/Creatinine Ratio 11 (6-26); Blood Urea Nitrogen 7 mg/dL (6-20); Calcium 9.3 mg/dL (8.6-10.3); Carbon Dioxide 39 mEq/L (23-29); Chloride 96 mEq/L (98-107); Glucose 121 mg/dL (70-105); Osmolality,Calculated 289 (280-300); Potassium 4.1 mEq/L (3.5-5.1); Sodium 140 mEq/L (136-145); eGFR For African Americans > 60 (> 60); eGFR For Non-African Americans > 60 (> 60)
[2021-04-03 23:21] LABS: Troponin I < 0.03 ng/mL (< 0.04)
[2021-04-03] MEDS ORDERED: Furosemide 40 MG/4 ML VIAL IVP ONE (23:41)
[2021-04-04] MEDS ORDERED: Perflutren Lipid Microsphere 1.3 ML in 0.9 % Sodium Chloride 8.7 ML IVP PRN (01:25)
[2021-04-04] MEDS ORDERED: Acetaminophen 325 MG TABLET PO PRN (02:21)
[2021-04-04] MEDS ORDERED: Naloxone 0.4 MG/ML INJ IVP PRN (02:21)
[2021-04-04] MEDS ORDERED: Ondansetron 4 MG/2 ML VIAL IVP PRN (02:21)
[2021-04-04 03:05] LABS: Adenovirus Not Detected (Not Detect); Bordetella Pertussis Not Detected (Not Detect); Chlamydophila pneumoniae Not Detected (Not Detect); Coronavirus 229E Not Detected (Not Detect); Coronavirus HKU1 Not Detected (Not Detect); Coronavirus NL63 Not Detected (Not Detect); Coronavirus OC43 Not Detected (Not Detect); Human Metapneumovirus Not Detected (Not Detect); Human Rhinovirus/Enterovirus Not Detected (Not Detect); Influenza A Subtype 2009 H1 Not Detected (Not Detect); Influenza B Not Detected (Not Detect); Mycoplasma pneumoniae Not Detected (Not Detect); Parainfluenza Virus 1 Not Detected (Not Detect); Parainfluenza Virus 2 Not Detected (Not Detect); Parainfluenza Virus 3 Not Detected (Not Detect); Parainfluenza Virus 4 Not Detected (Not Detect); Respiratory Syncytial Virus Not Detected (Not Detect); SARS-CoV-2 Not Detected (Not Detect)
[2021-04-04] MEDS ORDERED: Ipratropium/Albuterol Neb 3 ML IH PRN (03:50)
[2021-04-04 05:28] LABS: Mean Corpuscular HGB Conc 30.2 g/dL (31.6-35.5); Mean Corpuscular Hemoglobin 30.5 pg (28.0-33.3); Mean Corpuscular Volume 100.9 fL (83.0-100.0); Mean Platelet Volume 11.1 fL (9.4-12.4); Platelet Count 250 K/mcL (140-400); Red Blood Count 4.26 M/mcL (3.82-4.97); Red Cell Distribution Width 12.9 % (11.5-14.5); White Blood Count 7.9 K/mcL (4.3-11.1)
[2021-04-04 05:52] LABS: BUN/Creatinine Ratio 11 (6-26); Blood Urea Nitrogen 7 mg/dL (6-20); Calcium 9.4 mg/dL (8.6-10.3); Carbon Dioxide 41 mEq/L (23-29); Chloride 93 mEq/L (98-107); Glucose 119 mg/dL (70-105); Magnesium 1.5 mg/dL (1.6-2.6); Osmolality,Calculated 287 (280-300); Phosphorous 3.9 mg/dL (2.7-4.5); Potassium 3.7 mEq/L (3.5-5.1); Sodium 139 mEq/L (136-145); Triglycerides 100 mg/dL (< 150); eGFR For African Americans > 60 (> 60); eGFR For Non-African Americans > 60 (> 60)
[2021-04-04 05:53] LABS: Chol/HDL Ratio 2.6 (0-4.9); Cholesterol 115 mg/dL (< 200); HDL Cholesterol 45 mg/dL (40-59); LDL Cholesterol,Calculated 50 mg/dL (< 100)
[2021-04-04 06:04] LABS: Estimated Average Glucose 134 mg/dl; Hemoglobin A1C 6.3 %
[2021-04-04] MEDS: *HR* Heparin 5,000 UNIT/ML VIAL SQ SCH ×3 (06:14→21:33)
[2021-04-04] MEDS: Furosemide 20 MG TABLET PO SCH ×2 (09:50→18:33)
[2021-04-04] MEDS ORDERED: Albuterol 2.5 MG/3 ML NEBULIZER IH PRN (10:47)
[2021-04-04] MEDS: Ipratropium/Albuterol Neb 3 ML IH SCH ×4 (11:08→23:28)
[2021-04-04] MEDS: predniSONE 20 MG TABLET PO SCH (14:10)
[2021-04-04] MEDS: Budesonide/Formoterol 160/4.5 1 PUFF INH IH SCH (20:42)
[2021-04-04] MEDS: (Buprenorphine Hcl/Naloxone Hcl [Suboxone 8 Mg-2 Mg S SL SCH (21:35)
[2021-04-05 01:13] LABS: Hematocrit 41.6 % (35.3-44.9); Hemoglobin 12.6 g/dL (11.5-15.4); Mean Corpuscular HGB Conc 30.3 g/dL (31.6-35.5); Mean Corpuscular Hemoglobin 29.5 pg (28.0-33.3); Mean Corpuscular Volume 97.4 fL (83.0-100.0); Mean Platelet Volume 10.9 fL (9.4-12.4); Platelet Count 250 K/mcL (140-400); Red Blood Count 4.27 M/mcL (3.82-4.97); Red Cell Distribution Width 12.6 % (11.5-14.5); White Blood Count 7.1 K/mcL (4.3-11.1)
[2021-04-05 01:50] LABS: BUN/Creatinine Ratio 15 (6-26); Blood Urea Nitrogen 12 mg/dL (6-20); Carbon Dioxide 41 mEq/L (23-29); Chloride 90 mEq/L (98-107); Glucose 207 mg/dL (70-105); Osmolality,Calculated 288 (280-300); Potassium 4.2 mEq/L (3.5-5.1); Sodium 136 mEq/L (136-145); eGFR For African Americans > 60 (> 60); eGFR For Non-African Americans > 60 (> 60)
[2021-04-05] MEDS: Ipratropium/Albuterol Neb 3 ML IH SCH ×3 (04:27→11:21)
[2021-04-05] MEDS: *HR* Heparin 5,000 UNIT/ML VIAL SQ SCH (06:14)
[2021-04-05] MEDS: Budesonide/Formoterol 160/4.5 1 PUFF INH IH SCH (07:41)
[2021-04-05 07:50] VITALS: BP 134/76
[2021-04-05] MEDS: predniSONE 20 MG TABLET PO SCH (08:25)
[2021-04-05] MEDS: (Buprenorphine Hcl/Naloxone Hcl [Suboxone 8 Mg-2 Mg S SL SCH (08:25)
[2021-04-05] MEDS: Furosemide 20 MG TABLET PO SCH (08:25)
[2021-04-05] MEDS ORDERED: atenoloL 25 MG TABLET PO SCH (09:00)
[2021-04-05] MEDS ORDERED: Aspirin Enteric Coated 81 MG Tablet PO SCH (09:00)
[2021-04-05] MEDS ORDERED: Tiotropium 10 INH DOSE IH SCH (10:00)
== END 2021-04-05 11:33 | disposition home or self-care (01) ==
LOC: 3NENU 21:20 → EMEROOARM 21:20 → SUATTDRO 04-04 03:15 → 3NENU 04-04 04:18 → UNDODISOB 04-04 18:20
PROVIDERS: ADMIT Student in an Organized Health Care Education/Training Program; ATTEND Family Medicine

== ENCOUNTER 2021-06-01 09:22 | Inpatient (IN) ==
[2021-06-01 10:46] LABS: Basophils % 0.3 %; Eosinophils % 0.4 %; Hematocrit 47.5 % (35.3-44.9); Hemoglobin 13.9 g/dL (11.5-15.4); Immature Granulocytes % 1.5 % (0-4); Lymphocytes # 1.2 K/mcL (0.6-4.6); Lymphocytes % 15.8 %; Mean Corpuscular HGB Conc 29.3 g/dL (31.6-35.5); Mean Corpuscular Volume 102.6 fL (83.0-100.0); Mean Platelet Volume 11.6 fL (9.4-12.4); Monocytes # 0.8 K/mcL (0.0-1.3); Monocytes % 10.8 %; Neutrophils # 5.2 K/mcL (1.6-8.9); Platelet Count 194 K/mcL (140-400); Red Blood Count 4.63 M/mcL (3.82-4.97); Red Cell Distribution Width 12.3 % (11.5-14.5); Segmented Neutrophils % 71.2 %; White Blood Count 7.3 K/mcL (4.3-11.1)
[2021-06-01 11:15] LABS: Prothrombin Time 11.6 Seconds (9.4-12.1)
[2021-06-01 11:18] LABS: Activated Partial Thrombo Time 29.5 Seconds (26.0-36.0)
[2021-06-01 11:36] LABS: Alanine Aminotransferase 12 Units/L (7-52); Albumin 4.3 g/dL (3.5-5.7); Albumin/Globulin Ratio 1.4 (1.1-2.2); Alkaline Phosphatase 69 Units/L (34-104); Aspartate Amino Transferase 20 Units/L (13-39); BUN/Creatinine Ratio 27 (6-26); Bilirubin,Total 0.4 mg/dL (0.3-1.0); Blood Urea Nitrogen 19 mg/dL (6-20); Calcium 9.4 mg/dL (8.6-10.3); Carbon Dioxide 45 mEq/L (23-29); Chloride 90 mEq/L (98-107); Creatine Kinase 87 Units/L (30-223); Glucose 109 mg/dL (70-105); Lipase 12 Units/L (11-82); Magnesium 1.6 mg/dL (1.6-2.6); Osmolality,Calculated 291 (280-300); Potassium 3.8 mEq/L (3.5-5.1); Sodium 139 mEq/L (136-145); Thyroid Stimulating Hormone 2.219 mcIU/mL (0.340-5.600); Total Protein 7.3 g/dL (6.4-8.9); eGFR For African Americans > 60 (> 60); eGFR For Non-African Americans > 60 (> 60)
[2021-06-01 11:50] LABS: Troponin I < 0.03 ng/mL (< 0.04)
[2021-06-01 11:58] LABS: Adenovirus Not Detected (Not Detect); Bordetella Pertussis Not Detected (Not Detect); Chlamydophila pneumoniae Not Detected (Not Detect); Coronavirus 229E Not Detected (Not Detect); Coronavirus HKU1 Not Detected (Not Detect); Coronavirus NL63 Not Detected (Not Detect); Coronavirus OC43 Not Detected (Not Detect); Human Metapneumovirus Not Detected (Not Detect); Human Rhinovirus/Enterovirus DETECTED (Not Detect); Influenza A Subtype 2009 H1 Not Detected (Not Detect); Influenza B Not Detected (Not Detect); Mycoplasma pneumoniae Not Detected (Not Detect); Parainfluenza Virus 1 Not Detected (Not Detect); Parainfluenza Virus 2 Not Detected (Not Detect); Parainfluenza Virus 3 Not Detected (Not Detect); Parainfluenza Virus 4 Not Detected (Not Detect); Respiratory Syncytial Virus Not Detected (Not Detect); SARS-CoV-2 Not Detected (Not Detect)
[2021-06-01] MEDS ORDERED: Isovue-370 500 ML BOTTLE IVP ONE (12:19)
[2021-06-01] MEDS: Azithromycin 250 MG TABLET PO ONE ×2 (12:48→13:11)
[2021-06-01 13:06] LABS: ABG Base Excess 16 mEq/L (-2 to 3); ABG HCO3 51 mEq/L (21-27); ABG Oxygen Saturation 86 % (95-98); ABG PCO2 129 mmHg (35-45); ABG PO2 68 mmHg (85-104); ABG TCO2 > 50 mEq/L (20-26); Blood Gas Modality avaps; Blood Gas Pressure Support 20 cm H2O; Blood Gas VT 450 cc
[2021-06-01] MEDS ORDERED: Ondansetron 4 MG/2 ML VIAL IVP PRN (14:09)
[2021-06-01] MEDS ORDERED: Naloxone 0.4 MG/ML INJ IVP PRN ×2 (14:09→15:09)
[2021-06-01 14:28] LABS: ABG Base Excess 16 mEq/L (-2 to 3); ABG HCO3 52 mEq/L (21-27); ABG Oxygen Saturation 90 % (95-98); ABG PCO2 131 mmHg (35-45); ABG PO2 79 mmHg (85-104); ABG TCO2 > 50 mEq/L (20-26); Blood Gas Modality BiLevel; Blood Gas Pressure Support 20 cm H2O; Blood Gas VT 450 cc
[2021-06-01] MEDS ORDERED: Albuterol 2.5 MG/3 ML NEBULIZER IH PRN (15:11)
[2021-06-01] MEDS: Azithromycin 500 MG in 0.9 % Sodium Chloride 250 ML IVPB SCH (15:51)
[2021-06-01] MEDS: methylPREDNISolone 125 MG/2 ML VIAL IVP SCH (15:54)
[2021-06-01 17:48] LABS: Bilirubin,Urine Negative (Negative); Blood,Urine Negative (Negative); Clarity,Urine Clear (Clear); Color,Urine Light-Yellow (Yellow); Glucose,Urine (UA) Normal (Normal); Ketones,Urine Negative (Negative); Leukocyte Esterase,Urine Negative (Negative); Nitrite,Urine Negative (Negative); PH,Urine 6.5 pH Units (5.0-8.0); Protein,Urine Trace mg/dL (Neg-Trace); Specific Gravity,Urine > 1.030 (1.010-1.025); Urobilinogen,Urine Normal (Normal)
[2021-06-01] MEDS: Ipratropium/Albuterol Neb 3 ML IH SCH ×3 (18:16→23:05)
[2021-06-01] MEDS: Furosemide 40 MG/4 ML VIAL IVP SCH (18:40)
[2021-06-01] MEDS: Budesonide/Formoterol 160/4.5 1 PUFF INH IH SCH (20:34)
[2021-06-01] MEDS: *HR* Heparin 5,000 UNIT/ML VIAL SQ SCH (21:05)
[2021-06-01] MEDS: Acetaminophen 325 MG TABLET PO PRN (21:05)
[2021-06-02] MEDS: methylPREDNISolone 125 MG/2 ML VIAL IVP SCH ×4 (00:40→23:12)
[2021-06-02] MEDS: Ipratropium/Albuterol Neb 3 ML IH SCH ×6 (04:20→23:35)
[2021-06-02] MEDS: *HR* Heparin 5,000 UNIT/ML VIAL SQ SCH ×3 (05:06→23:11)
[2021-06-02 05:44] LABS: ABG Base Excess 15 mEq/L (-2 to 3); ABG HCO3 51 mEq/L (21-27); ABG Oxygen Saturation 83 % (95-98); ABG PCO2 137 mmHg (35-45); ABG PH 7.18 pH Units (7.32-7.45); ABG PO2 66 mmHg (85-104); ABG TCO2 > 50 mEq/L (20-26); Blood Gas Modality avaps; Blood Gas VT 500 cc
[2021-06-02] MEDS: Budesonide/Formoterol 160/4.5 1 PUFF INH IH SCH ×2 (08:12→20:00)
[2021-06-02] MEDS: Furosemide 40 MG/4 ML VIAL IVP SCH (08:29)
[2021-06-02] MEDS: atenoloL 25 MG TABLET PO SCH (08:31)
[2021-06-02] MEDS: Aspirin Enteric Coated 81 MG Tablet PO SCH (08:31)
[2021-06-02] MEDS: Nystatin SUSP 5 ML UD.LIQ PO SCH ×4 (09:50→19:49)
[2021-06-02 11:30] LABS: Hematocrit 45.4 % (35.3-44.9); Hemoglobin 13.6 g/dL (11.5-15.4); Mean Corpuscular Hemoglobin 30.6 pg (28.0-33.3); Mean Corpuscular Volume 102.3 fL (83.0-100.0); Mean Platelet Volume 11.4 fL (9.4-12.4); Platelet Count 168 K/mcL (140-400); Red Blood Count 4.44 M/mcL (3.82-4.97); White Blood Count 4.4 K/mcL (4.3-11.1)
[2021-06-02 12:52] LABS: BUN/Creatinine Ratio 31 (6-26); Blood Urea Nitrogen 20 mg/dL (6-20); Calcium 8.8 mg/dL (8.6-10.3); Carbon Dioxide > 45 mEq/L (23-29); Chloride 89 mEq/L (98-107); Glucose 146 mg/dL (70-105); Magnesium 1.6 mg/dL (1.6-2.6); Osmolality,Calculated 293 (280-300); Potassium 4.2 mEq/L (3.5-5.1); Sodium 139 mEq/L (136-145); eGFR For African Americans > 60 (> 60); eGFR For Non-African Americans > 60 (> 60)
[2021-06-02] MEDS ORDERED: acetaZOLAMIDE 500 MG in Water for inj. (sterile) 5 ML IVP ONE ×2 (12:56→14:30)
[2021-06-02] MEDS: Azithromycin 500 MG in 0.9 % Sodium Chloride 250 ML IVPB SCH (16:55)
[2021-06-02] MEDS ORDERED: Dexmedetomidine HCl 400 MCG/100 ML MLS IVC SCH (23:45)
[2021-06-02 23:50] LABS: ABG Base Excess 18 mEq/L (-2 to 3); ABG HCO3 51 mEq/L (21-27); ABG Oxygen Saturation 90 % (95-98); ABG PCO2 101 mmHg (35-45); ABG PH 7.31 pH Units (7.32-7.45); ABG PO2 69 mmHg (85-104); ABG TCO2 > 50 mEq/L (20-26); Blood Gas VT 550 cc
[2021-06-03] MEDS: Dexmedetomidine HCl 400 MCG/100 ML MLS IVC SCH ×7 (00:24→23:24)
[2021-06-03] MEDS ORDERED: Haloperidol Lactate 5 MG/ML VIAL IVP ONE (02:02)
[2021-06-03] MEDS: Ipratropium/Albuterol Neb 3 ML IH SCH ×6 (03:33→23:28)
[2021-06-03 04:23] LABS: Bacteria,Urine Few per hpf (None-Few); Bilirubin,Urine Negative (Negative); Blood,Urine Negative (Negative); Clarity,Urine Clear (Clear); Color,Urine Light-Yellow (Yellow); Glucose,Urine (UA) Normal (Normal); Ketones,Urine Negative (Negative); Leukocyte Esterase,Urine Negative (Negative); Nitrite,Urine Negative (Negative); Protein,Urine 30 mg/dL (Neg-Trace); Specific Gravity,Urine 1.024 (1.010-1.025); Squamous Epithelial Cell,Urine Few per hpf (None-Few); Urobilinogen,Urine Normal (Normal); WBC,Urine 0-3 per hpf (0-3)
[2021-06-03] MEDS: *HR* Heparin 5,000 UNIT/ML VIAL SQ SCH ×3 (05:18→20:39)
[2021-06-03 05:46] LABS: Hematocrit 40.8 % (35.3-44.9); Hemoglobin 12.5 g/dL (11.5-15.4); Mean Corpuscular HGB Conc 30.6 g/dL (31.6-35.5); Mean Corpuscular Hemoglobin 30.1 pg (28.0-33.3); Mean Corpuscular Volume 98.3 fL (83.0-100.0); Mean Platelet Volume 11.5 fL (9.4-12.4); Platelet Count 156 K/mcL (140-400); Red Blood Count 4.15 M/mcL (3.82-4.97); Red Cell Distribution Width 11.8 % (11.5-14.5); White Blood Count 3.3 K/mcL (4.3-11.1)
[2021-06-03 06:20] LABS: BUN/Creatinine Ratio 46 (6-26); Blood Urea Nitrogen 33 mg/dL (6-20); Calcium 8.8 mg/dL (8.6-10.3); Carbon Dioxide > 45 mEq/L (23-29); Chloride 87 mEq/L (98-107); Glucose 173 mg/dL (70-105); Magnesium 1.9 mg/dL (1.6-2.6); Osmolality,Calculated 297 (280-300); Potassium 3.8 mEq/L (3.5-5.1); Sodium 138 mEq/L (136-145); eGFR For African Americans > 60 (> 60); eGFR For Non-African Americans > 60 (> 60)
[2021-06-03] MEDS: Budesonide/Formoterol 160/4.5 1 PUFF INH IH SCH ×2 (08:04→19:33)
[2021-06-03] MEDS: Aspirin Enteric Coated 81 MG Tablet PO SCH (08:12)
[2021-06-03] MEDS: methylPREDNISolone 125 MG/2 ML VIAL IVP SCH ×2 (08:12→18:04)
[2021-06-03] MEDS: atenoloL 25 MG TABLET PO SCH (08:12)
[2021-06-03] MEDS: Nystatin SUSP 5 ML UD.LIQ PO SCH ×4 (08:13→20:39)
[2021-06-03] MEDS: QUEtiapine Fumarate 25 MG TABLET PO SCH ×2 (09:51→20:39)
[2021-06-03] MEDS: Azithromycin 500 MG in 0.9 % Sodium Chloride 250 ML IVPB SCH (18:04)
[2021-06-04] MEDS: Acetaminophen 325 MG TABLET PO PRN (00:05)
[2021-06-04] MEDS: Ipratropium/Albuterol Neb 3 ML IH SCH ×6 (03:42→23:36)
[2021-06-04] MEDS ORDERED: Ketorolac 30 MG/ML VIAL IVP ONE (04:43)
[2021-06-04] MEDS ORDERED: Furosemide 40 MG/4 ML VIAL IVP ONE (04:46)
[2021-06-04] MEDS ORDERED: Furosemide 40 MG TABLET PO ONE (05:00)
[2021-06-04] MEDS: *HR* Heparin 5,000 UNIT/ML VIAL SQ SCH ×3 (05:48→20:30)
[2021-06-04] MEDS ORDERED: methylPREDNISolone 125 MG/2 ML VIAL IVP SCH (06:00)
[2021-06-04 06:19] LABS: Hematocrit 39.3 % (35.3-44.9); Hemoglobin 12.7 g/dL (11.5-15.4); Mean Corpuscular HGB Conc 32.3 g/dL (31.6-35.5); Mean Corpuscular Hemoglobin 30.3 pg (28.0-33.3); Mean Corpuscular Volume 93.8 fL (83.0-100.0); Mean Platelet Volume 11.7 fL (9.4-12.4); Platelet Count 144 K/mcL (140-400); Red Blood Count 4.19 M/mcL (3.82-4.97); Red Cell Distribution Width 11.9 % (11.5-14.5)
[2021-06-04 06:24] LABS: White Blood Count 6.3 K/mcL (4.3-11.1)
[2021-06-04 06:51] LABS: BUN/Creatinine Ratio 46 (6-26); Blood Urea Nitrogen 32 mg/dL (6-20); Calcium 8.7 mg/dL (8.6-10.3); Carbon Dioxide 34 mEq/L (23-29); Chloride 91 mEq/L (98-107); Glucose 141 mg/dL (70-105); Magnesium 2.2 mg/dL (1.6-2.6); Osmolality,Calculated 289 (280-300); Potassium 4.1 mEq/L (3.5-5.1); Sodium 135 mEq/L (136-145); eGFR For African Americans > 60 (> 60); eGFR For Non-African Americans > 60 (> 60)
[2021-06-04] MEDS: Budesonide/Formoterol 160/4.5 1 PUFF INH IH SCH ×2 (07:22→20:40)
[2021-06-04] MEDS: QUEtiapine Fumarate 25 MG TABLET PO SCH ×2 (08:15→20:30)
[2021-06-04] MEDS: Aspirin Enteric Coated 81 MG Tablet PO SCH (08:15)
[2021-06-04] MEDS: atenoloL 25 MG TABLET PO SCH (08:15)
[2021-06-04] MEDS: Nystatin SUSP 5 ML UD.LIQ PO SCH ×4 (08:15→20:29)
[2021-06-04] MEDS: Dexmedetomidine HCl 400 MCG/100 ML MLS IVC SCH ×2 (11:06→13:37)
[2021-06-04] MEDS ORDERED: Acetaminophen 325 MG TABLET PO PRN (12:20)
[2021-06-04] MEDS ORDERED: Naloxone 0.4 MG/ML INJ IVP PRN (12:20)
[2021-06-04] MEDS ORDERED: Albuterol 2.5 MG/3 ML NEBULIZER IH PRN (12:20)
[2021-06-04] MEDS ORDERED: Azithromycin 500 MG in 0.9 % Sodium Chloride 250 ML IVPB SCH (16:00)
[2021-06-04] MEDS: methylPREDNISolone 125 MG/2 ML VIAL IVP SCH (18:15)
[2021-06-04] MEDS: Buprenorphine Hcl/Naloxone Hcl [Suboxone 8 Mg-2 Mg] SL SCH (20:30)
[2021-06-05] MEDS: *HR* Buprenorphine HCl 8 MG TAB.SUBL SL SCH ×2 (00:57→05:57)
[2021-06-05] MEDS: Ipratropium/Albuterol Neb 3 ML IH SCH ×3 (03:50→10:58)
[2021-06-05] MEDS: *HR* Heparin 5,000 UNIT/ML VIAL SQ SCH (05:56)
[2021-06-05] MEDS: methylPREDNISolone 125 MG/2 ML VIAL IVP SCH (05:57)
[2021-06-05 06:40] LABS: Hematocrit 42.9 % (35.3-44.9); Hemoglobin 13.2 g/dL (11.5-15.4); Mean Corpuscular HGB Conc 30.8 g/dL (31.6-35.5); Mean Corpuscular Hemoglobin 29.6 pg (28.0-33.3); Mean Corpuscular Volume 96.2 fL (83.0-100.0); Mean Platelet Volume 11.5 fL (9.4-12.4); Platelet Count 162 K/mcL (140-400); Red Blood Count 4.46 M/mcL (3.82-4.97); Red Cell Distribution Width 12.4 % (11.5-14.5); White Blood Count 6.7 K/mcL (4.3-11.1)
[2021-06-05] MEDS: Buprenorphine Hcl/Naloxone Hcl [Suboxone 8 Mg-2 Mg] SL SCH (07:15)
[2021-06-05] MEDS: Dexmedetomidine HCl 400 MCG/100 ML MLS IVC SCH (07:15)
[2021-06-05 07:17] LABS: BUN/Creatinine Ratio 41 (6-26); Blood Urea Nitrogen 30 mg/dL (6-20); Calcium 9.2 mg/dL (8.6-10.3); Carbon Dioxide 42 mEq/L (23-29); Chloride 93 mEq/L (98-107); Glucose 192 mg/dL (70-105); Magnesium 2.2 mg/dL (1.6-2.6); Osmolality,Calculated 301 (280-300); Potassium 3.8 mEq/L (3.5-5.1); Sodium 140 mEq/L (136-145); eGFR For African Americans > 60 (> 60); eGFR For Non-African Americans > 60 (> 60)
[2021-06-05] MEDS: Budesonide/Formoterol 160/4.5 1 PUFF INH IH SCH (07:30)
[2021-06-05] MEDS: QUEtiapine Fumarate 25 MG TABLET PO SCH (07:32)
[2021-06-05] MEDS: Nystatin SUSP 5 ML UD.LIQ PO SCH (07:32)
[2021-06-05] MEDS ORDERED: Aspirin Enteric Coated 81 MG Tablet PO SCH (09:00)
[2021-06-05] MEDS ORDERED: atenoloL 25 MG TABLET PO SCH (09:00)
[2021-06-05 10:36] VITALS: BP 113/88
== END 2021-06-05 12:47 | disposition home or self-care (01) | DRG 133 ==
LOC: EMEROOARM 09:22 → 2NNU 09:22 → ICNU 15:45 → SUATTDRO 19:57 → CDU 06-04 10:46 → 2NENU 06-04 22:36
PROVIDERS: ADMIT Internal Medicine; ATTEND Internal Medicine

== ENCOUNTER 2022-08-15 18:49 | Inpatient (IN) ==
[2022-08-15 20:06] LABS: Basophils % 0.4 %; Eosinophils % 0.5 %; Hematocrit 45.7 % (35.3-44.9); Hemoglobin 13.2 g/dL (11.5-15.4); Lymphocytes # 0.9 K/mcL (0.6-4.6); Lymphocytes % 11.7 %; Mean Corpuscular HGB Conc 28.9 g/dL (31.6-35.5); Mean Corpuscular Hemoglobin 29.5 pg (28.0-33.3); Mean Platelet Volume 10.9 fL (9.4-12.4); Monocytes % 13.4 %; Neutrophils # 5.4 K/mcL (1.6-8.9); Platelet Count 147 K/mcL (140-400); Red Blood Count 4.48 M/mcL (3.82-4.97); Red Cell Distribution Width 13.5 % (11.5-14.5); White Blood Count 7.5 K/mcL (4.3-11.1)
[2022-08-15 20:20] LABS: VBG HCO3 43 mEq/L (21-27); VBG PCO2 103 mmHg (41-51); VBG PH 7.23 pH Units (7.32-7.42); VBG PO2 79 mmHg (25-50)
[2022-08-15] MEDS ORDERED: Ipratropium/Albuterol Neb 3 ML IH ONE (20:20)
[2022-08-15 20:32] LABS: BUN/Creatinine Ratio 29 (6-26); Blood Urea Nitrogen 16 mg/dL (6-20); Calcium 9.5 mg/dL (8.6-10.3); Carbon Dioxide 42 mEq/L (23-29); Chloride 91 mEq/L (98-107); Glucose 116 mg/dL (70-105); Osmolality,Calculated 282 (280-300); Potassium 5.1 mEq/L (3.5-5.1); Sodium 135 mEq/L (136-145); Troponin I < 0.03 ng/mL (< 0.04)
[2022-08-15] MEDS ORDERED: cefTRIAXone 1,000 MG in Water for inj. (sterile) 10 ML IVP ONE (20:43)
[2022-08-15] MEDS ORDERED: methylPREDNISolone 125 MG/2 ML VIAL IVP ONE (20:45)
[2022-08-15 20:50] LABS: Influenza A PCR Negative (Negative); Influenza B PCR Negative (Negative); Resp. Syncytial Virus PCR Negative (Negative)
[2022-08-15 21:13] LABS: SARS-CoV-2 by PCR (In House) Positive (Negative)
[2022-08-15 22:25] LABS: VBG HCO3 39 mEq/L (21-27); VBG PCO2 85 mmHg (41-51); VBG PH 7.27 pH Units (7.32-7.42); VBG PO2 107 mmHg (25-50)
[2022-08-15] MEDS ORDERED: Dexamethasone Sodium Phos/PF 10 MG/ML VIAL IVP SCH (23:45)
[2022-08-15] MEDS ORDERED: Ondansetron ODT 4 MG TAB.RAPDIS SL PRN (23:50)
[2022-08-15] MEDS ORDERED: Melatonin 3 MG TABLET PO PRN (23:50)
[2022-08-15] MEDS ORDERED: Naloxone 0.4 MG/ML INJ IVP PRN (23:50)
[2022-08-16] MEDS ORDERED: Dexamethasone Sodium Phos/PF 10 MG/ML VIAL IVP SCH (00:15)
[2022-08-16 03:16] LABS: Hemoglobin 13.5 g/dL (11.5-15.4); Red Cell Distribution Width 13.2 % (11.5-14.5)
[2022-08-16 03:18] LABS: Basophils % 0.5 %; Hematocrit 46.9 % (35.3-44.9); Immature Granulocytes % 3.7 % (0-4); Immature Platelets 12.4 % (1.1-6.1); Lymphocytes # 0.3 K/mcL (0.6-4.6); Lymphocytes % 5.8 %; Mean Corpuscular HGB Conc 28.8 g/dL (31.6-35.5); Mean Corpuscular Hemoglobin 29.6 pg (28.0-33.3); Mean Corpuscular Volume 102.9 fL (83.0-100.0); Mean Platelet Volume 11.3 fL (9.4-12.4); Monocytes # 0.1 K/mcL (0.0-1.3); Monocytes % 2.3 %; Platelet Count 128 K/mcL (140-400); Red Blood Count 4.56 M/mcL (3.82-4.97); Segmented Neutrophils % 87.7 %
[2022-08-16 03:27] LABS: White Blood Count 5.7 K/mcL (4.3-11.1)
[2022-08-16 03:32] LABS: Albumin 3.9 g/dL (3.5-5.7); Albumin/Globulin Ratio 1.2 (1.1-2.2); Bilirubin,Indirect 0.3 mg/dL (0.0-1.0); Bilirubin,Total 0.3 mg/dL (0.3-1.0); Globulin 3.2 g/dL (2.4-3.5); Total Protein 7.1 g/dL (6.4-8.9)
[2022-08-16 03:45] LABS: BUN/Creatinine Ratio 31 (6-26); Blood Urea Nitrogen 17 mg/dL (6-20); Calcium 9.5 mg/dL (8.6-10.3); Carbon Dioxide > 45 mEq/L (23-29); Chloride 90 mEq/L (98-107); Glucose 144 mg/dL (70-105); Magnesium 1.7 mg/dL (1.6-2.6); Osmolality,Calculated 290 (280-300); Phosphorous 5.1 mg/dL (2.7-4.5); Sodium 138 mEq/L (136-145)
[2022-08-16] MEDS ORDERED: *HR* Heparin 5,000 UNIT/ML VIAL SQ SCH (06:00)
[2022-08-16] MEDS ORDERED: Remdesivir 200 MG in 0.9 % Sodium Chloride 100 ML IVPB ONE (08:00)
[2022-08-16] MEDS ORDERED: Furosemide 40 MG/4 ML VIAL IVP SCH (09:00)
[2022-08-16] MEDS: Furosemide 240 MG in 0.9 % Sodium Chloride 96 ML IVC SCH (09:11)
[2022-08-16] MEDS: Dexamethasone Sodium Phos/PF 10 MG/ML VIAL IVP SCH (09:14)
[2022-08-16 09:33] LABS: ABG Base Excess 15 mEq/L (-2 to 3); ABG HCO3 51 mEq/L (21-27); ABG Oxygen Saturation 21 % (95-98); ABG PCO2 134 mmHg (35-45); ABG PH 7.19 pH Units (7.32-7.45); ABG PO2 21 mmHg (85-104); ABG TCO2 > 50 mEq/L (20-26); Blood Gas Modality ST; Blood Gas VT 22 cc
[2022-08-16] MEDS ORDERED: Tiotropium 10 INH DOSE IH SCH (10:00)
[2022-08-16 10:42] LABS: Bilirubin,Urine Negative (Negative); Blood,Urine Negative (Negative); Clarity,Urine Clear (Clear); Color,Urine Light-Yellow (Yellow); Glucose,Urine (UA) Normal (Normal); Ketones,Urine 10 mg/dL (Negative); Leukocyte Esterase,Urine Negative (Negative); Nitrite,Urine Negative (Negative); Protein,Urine Trace mg/dL (Neg-Trace); Urobilinogen,Urine Normal (Normal)
[2022-08-16] MEDS: Artificial Tears SOLN 15 ML BOTTLE BOTH EYES SCH ×3 (11:52→21:14)
[2022-08-16] MEDS: acetaZOLAMIDE 250 MG in Water for inj. (sterile) 2.5 ML IVP SCH ×2 (11:52→17:51)
[2022-08-16] MEDS: *HR* Heparin 5,000 UNIT/ML VIAL SQ SCH ×2 (14:41→21:20)
[2022-08-16] MEDS: Albumin 25% 25gram/100mL 25 GM/100 ML IV.SOLN IVPB SCH (14:42)
[2022-08-16 15:09] LABS: ABG Base Excess 15 mEq/L (-2 to 3); ABG HCO3 47 mEq/L (21-27); ABG Oxygen Saturation 70 % (95-98); ABG PCO2 105 mmHg (35-45); ABG PH 7.26 pH Units (7.32-7.45); ABG PO2 46 mmHg (85-104); ABG TCO2 > 50 mEq/L (20-26); Blood Gas VT 54 cc
[2022-08-16] MEDS: Ipratropium 1 PUFF INHALER IH SCH ×3 (16:18→23:40)
[2022-08-16] MEDS: Acetaminophen 325 MG TABLET PO PRN (21:19)
[2022-08-17] MEDS: Albumin 25% 25gram/100mL 25 GM/100 ML IV.SOLN IVPB SCH ×4 (00:35→23:44)
[2022-08-17] MEDS: acetaZOLAMIDE 250 MG in Water for inj. (sterile) 2.5 ML IVP SCH ×2 (00:36→04:48)
[2022-08-17] MEDS: Ipratropium 1 PUFF INHALER IH SCH ×6 (04:44→23:38)
[2022-08-17] MEDS: Remdesivir 100 MG in 0.9 % Sodium Chloride 100 ML IVPB SCH (04:47)
[2022-08-17] MEDS: Acetaminophen 325 MG TABLET PO PRN ×2 (04:48→13:19)
[2022-08-17] MEDS: *HR* Heparin 5,000 UNIT/ML VIAL SQ SCH ×3 (04:49→20:45)
[2022-08-17 04:55] LABS: ABG Base Excess 19 mEq/L (-2 to 3); ABG HCO3 52 mEq/L (21-27); ABG Oxygen Saturation 95 % (95-98); ABG PCO2 108 mmHg (35-45); ABG PH 7.29 pH Units (7.32-7.45); ABG PO2 95 mmHg (85-104); ABG TCO2 > 50 mEq/L (20-26); Blood Gas Pressure Support 10 cm H2O
[2022-08-17 04:59] LABS: VBG Ionized Calcium 1.09 mmol/L (1.15-1.35)
[2022-08-17 05:11] LABS: Albumin 4.6 g/dL (3.5-5.7); Albumin/Globulin Ratio 1.8 (1.1-2.2); Bilirubin,Direct 0.1 mg/dL (0.0-0.2); Bilirubin,Indirect 0.2 mg/dL (0.0-1.0); Bilirubin,Total 0.3 mg/dL (0.3-1.0); Globulin 2.6 g/dL (2.4-3.5); Total Protein 7.2 g/dL (6.4-8.9)
[2022-08-17 05:19] LABS: Alanine Aminotransferase 16 Units/L (7-52); Albumin 4.6 g/dL (3.5-5.7); Albumin/Globulin Ratio 1.8 (1.1-2.2); Alkaline Phosphatase 61 Units/L (34-104); Aspartate Amino Transferase 18 Units/L (13-39); BUN/Creatinine Ratio 34 (6-26); Bilirubin,Total 0.3 mg/dL (0.3-1.0); Blood Urea Nitrogen 25 mg/dL (6-20); C-Reactive Protein 18 mg/L (Less than 10); Calcium 9.8 mg/dL (8.6-10.3); Carbon Dioxide > 45 mEq/L (23-29); Chloride 81 mEq/L (98-107); Globulin 2.5 g/dL (2.4-3.5); Glucose 86 mg/dL (70-105); Magnesium 1.7 mg/dL (1.6-2.6); Osmolality,Calculated 290 (280-300); Phosphorous 4.1 mg/dL (2.7-4.5); Potassium 4.3 mEq/L (3.5-5.1); Sodium 138 mEq/L (136-145); Total Protein 7.1 g/dL (6.4-8.9)
[2022-08-17 05:24] LABS: Basophils % 0.2 %; Hematocrit 42.1 % (35.3-44.9); Hemoglobin 12.6 g/dL (11.5-15.4); Immature Granulocytes % 1.1 % (0-4); Lymphocytes # 1.2 K/mcL (0.6-4.6); Lymphocytes % 26.1 %; Mean Corpuscular HGB Conc 29.9 g/dL (31.6-35.5); Mean Corpuscular Hemoglobin 29.5 pg (28.0-33.3); Mean Corpuscular Volume 98.6 fL (83.0-100.0); Mean Platelet Volume 11.7 fL (9.4-12.4); Monocytes # 0.7 K/mcL (0.0-1.3); Monocytes % 15.7 %; Neutrophils # 2.6 K/mcL (1.6-8.9); Platelet Count 170 K/mcL (140-400); Red Blood Count 4.27 M/mcL (3.82-4.97); Red Cell Distribution Width 12.8 % (11.5-14.5); Segmented Neutrophils % 56.9 %; White Blood Count 4.6 K/mcL (4.3-11.1)
[2022-08-17] MEDS: Dexamethasone Sodium Phos/PF 10 MG/ML VIAL IVP SCH (08:24)
[2022-08-17] MEDS: Furosemide 240 MG in 0.9 % Sodium Chloride 96 ML IVC SCH ×2 (08:29→16:13)
[2022-08-17] MEDS: Artificial Tears SOLN 15 ML BOTTLE BOTH EYES SCH ×4 (08:31→20:46)
[2022-08-17] MEDS: hydrOXYzine pamoate 25 MG CAPSULE PO SCH ×2 (16:15→20:46)
[2022-08-17] MEDS: *HR* Buprenorphine HCl 8 MG TAB.SUBL SL SCH ×2 (16:15→20:45)
[2022-08-17] MEDS: *HR* LORazepam 2 MG/ML VIAL IVP PRN (21:47)
[2022-08-18 02:48] LABS: VBG Ionized Calcium 0.85 mmol/L (1.15-1.35)
[2022-08-18 02:58] LABS: Basophils % 0.2 %; Hematocrit 39.7 % (35.3-44.9); Hemoglobin 12.2 g/dL (11.5-15.4); Immature Granulocytes % 0.4 % (0-4); Lymphocytes % 20.2 %; Mean Corpuscular HGB Conc 30.7 g/dL (31.6-35.5); Mean Corpuscular Hemoglobin 29.3 pg (28.0-33.3); Mean Corpuscular Volume 95.2 fL (83.0-100.0); Mean Platelet Volume 11.7 fL (9.4-12.4); Monocytes # 0.7 K/mcL (0.0-1.3); Monocytes % 14.3 %; Neutrophils # 3.2 K/mcL (1.6-8.9); Platelet Count 177 K/mcL (140-400); Red Blood Count 4.17 M/mcL (3.82-4.97); Red Cell Distribution Width 12.5 % (11.5-14.5); Segmented Neutrophils % 64.9 %
[2022-08-18 03:33] LABS: Alanine Aminotransferase 14 Units/L (7-52); Albumin 5.5 g/dL (3.5-5.7); Albumin/Globulin Ratio 2.2 (1.1-2.2); Alkaline Phosphatase 52 Units/L (34-104); Aspartate Amino Transferase 17 Units/L (13-39); BUN/Creatinine Ratio 42 (6-26); Bilirubin,Direct 0.1 mg/dL (0.0-0.2); Bilirubin,Indirect 0.4 mg/dL (0.0-1.0); Bilirubin,Total 0.5 mg/dL (0.3-1.0); Blood Urea Nitrogen 34 mg/dL (6-20); C-Reactive Protein 11 mg/L (Less than 10); Calcium 9.8 mg/dL (8.6-10.3); Carbon Dioxide > 45 mEq/L (23-29); Chloride 77 mEq/L (98-107); Globulin 2.5 g/dL (2.4-3.5); Glucose 90 mg/dL (70-105); Magnesium 1.8 mg/dL (1.6-2.6); Osmolality,Calculated 293 (280-300); Phosphorous 3.1 mg/dL (2.7-4.5); Potassium 3.1 mEq/L (3.5-5.1); Sodium 138 mEq/L (136-145)
[2022-08-18] MEDS: Calcium Gluconate 1gm/50mL 1 GM/50 ML BAG IVPB SCH ×3 (04:02→04:31)
[2022-08-18] MEDS: *HR* Heparin 5,000 UNIT/ML VIAL SQ SCH ×3 (04:03→20:20)
[2022-08-18] MEDS: Ipratropium 1 PUFF INHALER IH SCH ×5 (04:27→20:45)
[2022-08-18] MEDS: Remdesivir 100 MG in 0.9 % Sodium Chloride 100 ML IVPB SCH (04:30)
[2022-08-18] MEDS: *HR* Buprenorphine HCl 8 MG TAB.SUBL SL SCH ×2 (08:19→19:56)
[2022-08-18] MEDS: hydrOXYzine pamoate 25 MG CAPSULE PO SCH ×3 (08:19→20:20)
[2022-08-18] MEDS: atenoloL 25 MG TABLET PO SCH (08:20)
[2022-08-18] MEDS: Artificial Tears SOLN 15 ML BOTTLE BOTH EYES SCH ×4 (08:20→19:54)
[2022-08-18] MEDS: Dexamethasone Sodium Phos/PF 10 MG/ML VIAL IVP SCH (08:20)
[2022-08-18] MEDS: Albumin 25% 25gram/100mL 25 GM/100 ML IV.SOLN IVPB SCH ×2 (08:20→14:59)
[2022-08-18] MEDS: *HR* LORazepam 2 MG/ML VIAL IVP PRN ×2 (08:44→20:10)
[2022-08-18] MEDS ORDERED: Dextrose Gel 15 GM/37.5 ML TUBE PO PRN ×2 (10:00)
[2022-08-18] MEDS ORDERED: *HR* Dextrose 50 % in Water (Syg) 50 ML SYRINGE IVP PRN (10:00)
[2022-08-18] MEDS ORDERED: D5% in Water 1,000 ML IVC PRN (10:00)
[2022-08-18] MEDS: Insulin LISPRO 300 UNITS/3 ML VIAL SUBQ SCH ×3 (10:48→23:22)
[2022-08-18] MEDS: Furosemide 240 MG in 0.9 % Sodium Chloride 96 ML IVC SCH (15:08)
[2022-08-18] MEDS: Acetaminophen 325 MG TABLET PO PRN (20:18)
[2022-08-18] MEDS: Budesonide/Formoterol 160/4.5 1 PUFF INH IH SCH (20:48)
[2022-08-18 21:49] LABS: BUN/Creatinine Ratio 53 (6-26); Blood Urea Nitrogen 40 mg/dL (6-20); Calcium 10.7 mg/dL (8.6-10.3); Carbon Dioxide > 45 mEq/L (23-29); Chloride 80 mEq/L (98-107); Glucose 115 mg/dL (70-105); Osmolality,Calculated 303 (280-300); Potassium 3.4 mEq/L (3.5-5.1); Sodium 141 mEq/L (136-145)
[2022-08-18 23:19] LABS: Magnesium 2.1 mg/dL (1.6-2.6)
[2022-08-19] MEDS: Ipratropium 1 PUFF INHALER IH SCH ×7 (00:23→23:03)
[2022-08-19] MEDS: Albumin 25% 25gram/100mL 25 GM/100 ML IV.SOLN IVPB SCH ×4 (01:09→23:54)
[2022-08-19] MEDS: *HR* LORazepam 2 MG/ML VIAL IVP PRN ×3 (01:35→23:56)
[2022-08-19] MEDS: Remdesivir 100 MG in 0.9 % Sodium Chloride 100 ML IVPB SCH (06:15)
[2022-08-19] MEDS: Acetaminophen 325 MG TABLET PO PRN ×2 (06:17→21:26)
[2022-08-19] MEDS: *HR* Heparin 5,000 UNIT/ML VIAL SQ SCH ×3 (06:17→21:17)
[2022-08-19 06:59] LABS: Hematocrit 39.7 % (35.3-44.9); Hemoglobin 12.3 g/dL (11.5-15.4); Immature Granulocytes % 0.2 % (0-4); Lymphocytes # 1.4 K/mcL (0.6-4.6); Mean Corpuscular Hemoglobin 29.8 pg (28.0-33.3); Mean Corpuscular Volume 96.1 fL (83.0-100.0); Mean Platelet Volume 10.8 fL (9.4-12.4); Monocytes # 0.7 K/mcL (0.0-1.3); Monocytes % 15.5 %; Neutrophils # 2.5 K/mcL (1.6-8.9); Platelet Count 150 K/mcL (140-400); Red Blood Count 4.13 M/mcL (3.82-4.97); Red Cell Distribution Width 12.8 % (11.5-14.5); Segmented Neutrophils % 54.3 %; White Blood Count 4.6 K/mcL (4.3-11.1)
[2022-08-19 07:03] LABS: VBG Ionized Calcium 1.06 mmol/L (1.15-1.35)
[2022-08-19] MEDS: Budesonide/Formoterol 160/4.5 1 PUFF INH IH SCH ×2 (07:59→20:05)
[2022-08-19] MEDS: Insulin LISPRO 300 UNITS/3 ML VIAL SUBQ SCH ×3 (08:37→17:14)
[2022-08-19] MEDS: Dexamethasone Sodium Phos/PF 10 MG/ML VIAL IVP SCH (08:40)
[2022-08-19] MEDS: *HR* Buprenorphine HCl 8 MG TAB.SUBL SL SCH ×2 (08:41→20:36)
[2022-08-19] MEDS: atenoloL 25 MG TABLET PO SCH (08:41)
[2022-08-19] MEDS: hydrOXYzine pamoate 25 MG CAPSULE PO SCH ×3 (08:41→21:26)
[2022-08-19 08:42] LABS: Alanine Aminotransferase 10 Units/L (7-52); Albumin 5.8 g/dL (3.5-5.7); Albumin/Globulin Ratio 2.8 (1.1-2.2); Alkaline Phosphatase 44 Units/L (34-104); Aspartate Amino Transferase 14 Units/L (13-39); BUN/Creatinine Ratio 49 (6-26); Bilirubin,Total 0.5 mg/dL (0.3-1.0); Blood Urea Nitrogen 46 mg/dL (6-20); Calcium 10.5 mg/dL (8.6-10.3); Carbon Dioxide > 45 mEq/L (23-29); Chloride 81 mEq/L (98-107); Globulin 2.1 g/dL (2.4-3.5); Glucose 89 mg/dL (70-105); Magnesium 2.2 mg/dL (1.6-2.6); Osmolality,Calculated 305 (280-300); Phosphorous 4.2 mg/dL (2.7-4.5); Sodium 142 mEq/L (136-145); Total Protein 7.9 g/dL (6.4-8.9)
[2022-08-19 09:07] LABS: C-Reactive Protein 7 mg/L (Less than 10)
[2022-08-19] MEDS ORDERED: Tiotropium 10 INH DOSE IH SCH (10:00)
[2022-08-19] MEDS: Artificial Tears SOLN 15 ML BOTTLE BOTH EYES SCH ×4 (11:33→21:18)
[2022-08-19 12:05] LABS: Estimated Average Glucose 146 mg/dl; Hemoglobin A1C 6.7 %
[2022-08-19] MEDS: Furosemide 240 MG in 0.9 % Sodium Chloride 96 ML IVC SCH (14:21)
[2022-08-19 21:01] LABS: Bilirubin,Direct 0.1 mg/dL (0.0-0.2); Bilirubin,Indirect 0.4 mg/dL (0.0-1.0)
[2022-08-20] MEDS: Ipratropium 1 PUFF INHALER IH SCH ×5 (03:50→20:39)
[2022-08-20 04:31] LABS: ABG Base Excess 18 mEq/L (-2 to 3); ABG HCO3 50 mEq/L (21-27); ABG Oxygen Saturation 96 % (95-98); ABG PCO2 96 mmHg (35-45); ABG PH 7.32 pH Units (7.32-7.45); ABG PO2 93 mmHg (85-104); ABG TCO2 > 50 mEq/L (20-26)
[2022-08-20] MEDS: *HR* Heparin 5,000 UNIT/ML VIAL SQ SCH ×3 (05:19→20:28)
[2022-08-20] MEDS: Remdesivir 100 MG in 0.9 % Sodium Chloride 100 ML IVPB SCH (05:20)
[2022-08-20] MEDS: Insulin LISPRO 300 UNITS/3 ML VIAL SUBQ SCH ×5 (05:29→20:41)
[2022-08-20 06:00] LABS: Hemoglobin 11.9 g/dL (11.5-15.4); Mean Platelet Volume 12.1 fL (9.4-12.4); Red Cell Distribution Width 12.7 % (11.5-14.5)
[2022-08-20 06:02] LABS: Hematocrit 37.2 % (35.3-44.9); Immature Granulocytes % 0.2 % (0-4); Immature Platelets 14.9 % (1.1-6.1); Lymphocytes % 18.8 %; Mean Corpuscular Hemoglobin 30.1 pg (28.0-33.3); Mean Corpuscular Volume 94.2 fL (83.0-100.0); Monocytes # 0.7 K/mcL (0.0-1.3); Monocytes % 13.4 %; Neutrophils # 3.5 K/mcL (1.6-8.9); Platelet Count 131 K/mcL (140-400); Red Blood Count 3.95 M/mcL (3.82-4.97); Segmented Neutrophils % 67.6 %; White Blood Count 5.2 K/mcL (4.3-11.1)
[2022-08-20 06:31] LABS: Alanine Aminotransferase 9 Units/L (7-52); Albumin 5.9 g/dL (3.5-5.7); Albumin/Globulin Ratio 3.3 (1.1-2.2); Alkaline Phosphatase 37 Units/L (34-104); Aspartate Amino Transferase 11 Units/L (13-39); BUN/Creatinine Ratio 62 (6-26); Bilirubin,Direct 0.2 mg/dL (0.0-0.2); Bilirubin,Indirect 0.3 mg/dL (0.0-1.0); Bilirubin,Total 0.5 mg/dL (0.3-1.0); Blood Urea Nitrogen 58 mg/dL (6-20); Calcium 10.3 mg/dL (8.6-10.3); Carbon Dioxide > 45 mEq/L (23-29); Chloride 83 mEq/L (98-107); Globulin 1.8 g/dL (2.4-3.5); Glucose 122 mg/dL (70-105); Magnesium 2.1 mg/dL (1.6-2.6); Osmolality,Calculated 311 (280-300); Phosphorous 4.2 mg/dL (2.7-4.5); Potassium 3.5 mEq/L (3.5-5.1); Sodium 142 mEq/L (136-145); Total Protein 7.7 g/dL (6.4-8.9)
[2022-08-20] MEDS: atenoloL 25 MG TABLET PO SCH (08:04)
[2022-08-20] MEDS: Dexamethasone Sodium Phos/PF 10 MG/ML VIAL IVP SCH (08:04)
[2022-08-20] MEDS: *HR* Buprenorphine HCl 8 MG TAB.SUBL SL SCH ×2 (08:04→20:27)
[2022-08-20] MEDS: hydrOXYzine pamoate 25 MG CAPSULE PO SCH ×3 (08:05→20:25)
[2022-08-20] MEDS: Albumin 25% 25gram/100mL 25 GM/100 ML IV.SOLN IVPB SCH (08:05)
[2022-08-20] MEDS: Budesonide/Formoterol 160/4.5 1 PUFF INH IH SCH ×2 (10:55→20:39)
[2022-08-20] MEDS: Artificial Tears SOLN 15 ML BOTTLE BOTH EYES SCH ×4 (11:44→20:19)
[2022-08-20] MEDS: *HR* LORazepam 0.5 MG TABLET PO PRN (13:49)
[2022-08-20] MEDS ORDERED: Insulin LISPRO 300 UNITS/3 ML VIAL SUBQ SCH (16:30)
[2022-08-21] MEDS: Ipratropium 1 PUFF INHALER IH SCH ×6 (00:11→20:29)
[2022-08-21] MEDS: *HR* LORazepam 0.5 MG TABLET PO PRN ×4 (00:29→23:45)
[2022-08-21 02:05] LABS: Basophils % 0.2 %; Hematocrit 40.9 % (35.3-44.9); Hemoglobin 12.6 g/dL (11.5-15.4); Immature Granulocytes % 0.5 % (0-4); Lymphocytes # 0.8 K/mcL (0.6-4.6); Lymphocytes % 13.5 %; Mean Corpuscular HGB Conc 30.8 g/dL (31.6-35.5); Mean Corpuscular Hemoglobin 29.5 pg (28.0-33.3); Mean Corpuscular Volume 95.8 fL (83.0-100.0); Mean Platelet Volume 11.9 fL (9.4-12.4); Monocytes # 0.6 K/mcL (0.0-1.3); Monocytes % 11.5 %; Neutrophils # 4.1 K/mcL (1.6-8.9); Platelet Count 151 K/mcL (140-400); Red Blood Count 4.27 M/mcL (3.82-4.97); Red Cell Distribution Width 12.9 % (11.5-14.5); Segmented Neutrophils % 74.3 %; White Blood Count 5.6 K/mcL (4.3-11.1)
[2022-08-21 02:24] LABS: Albumin 5.6 g/dL (3.5-5.7); Albumin/Globulin Ratio 2.7 (1.1-2.2); Bilirubin,Direct 0.1 mg/dL (0.0-0.2); Bilirubin,Indirect 0.3 mg/dL (0.0-1.0); Bilirubin,Total 0.4 mg/dL (0.3-1.0); Globulin 2.1 g/dL (2.4-3.5); Total Protein 7.7 g/dL (6.4-8.9)
[2022-08-21 02:27] LABS: Alanine Aminotransferase 8 Units/L (7-52); Albumin 5.5 g/dL (3.5-5.7); Albumin/Globulin Ratio 2.4 (1.1-2.2); Alkaline Phosphatase 44 Units/L (34-104); Aspartate Amino Transferase 11 Units/L (13-39); BUN/Creatinine Ratio 63 (6-26); Bilirubin,Total 0.4 mg/dL (0.3-1.0); Blood Urea Nitrogen 50 mg/dL (6-20); Calcium 10.4 mg/dL (8.6-10.3); Carbon Dioxide > 45 mEq/L (23-29); Chloride 87 mEq/L (98-107); Globulin 2.3 g/dL (2.4-3.5); Glucose 189 mg/dL (70-105); Magnesium 2.1 mg/dL (1.6-2.6); Osmolality,Calculated 306 (280-300); Phosphorous 2.5 mg/dL (2.7-4.5); Potassium 3.9 mEq/L (3.5-5.1); Sodium 139 mEq/L (136-145); Total Protein 7.8 g/dL (6.4-8.9)
[2022-08-21] MEDS: *HR* Heparin 5,000 UNIT/ML VIAL SQ SCH ×3 (04:29→20:10)
[2022-08-21] MEDS: Budesonide/Formoterol 160/4.5 1 PUFF INH IH SCH ×2 (08:02→20:30)
[2022-08-21] MEDS: Insulin LISPRO 300 UNITS/3 ML VIAL SUBQ SCH ×4 (08:41→20:21)
[2022-08-21] MEDS: *HR* Buprenorphine HCl 8 MG TAB.SUBL SL SCH ×2 (08:42→20:10)
[2022-08-21] MEDS: atenoloL 25 MG TABLET PO SCH (08:42)
[2022-08-21] MEDS: Artificial Tears SOLN 15 ML BOTTLE BOTH EYES SCH ×4 (08:43→20:11)
[2022-08-21] MEDS: hydrOXYzine pamoate 25 MG CAPSULE PO SCH ×3 (08:43→20:10)
[2022-08-22] MEDS: Ipratropium 1 PUFF INHALER IH SCH ×7 (00:09→23:13)
[2022-08-22 02:42] LABS: Basophils % 0.1 %; Hematocrit 40.2 % (35.3-44.9); Hemoglobin 12.4 g/dL (11.5-15.4); Immature Granulocytes % 0.5 % (0-4); Lymphocytes % 12.5 %; Mean Corpuscular HGB Conc 30.8 g/dL (31.6-35.5); Mean Corpuscular Volume 97.1 fL (83.0-100.0); Mean Platelet Volume 12.4 fL (9.4-12.4); Monocytes # 0.9 K/mcL (0.0-1.3); Monocytes % 10.8 %; Neutrophils # 6.2 K/mcL (1.6-8.9); Platelet Count 126 K/mcL (140-400); Red Blood Count 4.14 M/mcL (3.82-4.97); Red Cell Distribution Width 13.2 % (11.5-14.5); Segmented Neutrophils % 76.1 %; White Blood Count 8.2 K/mcL (4.3-11.1)
[2022-08-22 02:44] LABS: VBG Ionized Calcium 1.13 mmol/L (1.15-1.35)
[2022-08-22 03:15] LABS: Alanine Aminotransferase 7 Units/L (7-52); Albumin/Globulin Ratio 2.4 (1.1-2.2); Alkaline Phosphatase 49 Units/L (34-104); Aspartate Amino Transferase 10 Units/L (13-39); BUN/Creatinine Ratio 49 (6-26); Bilirubin,Total 0.3 mg/dL (0.3-1.0); Blood Urea Nitrogen 36 mg/dL (6-20); Calcium 10.1 mg/dL (8.6-10.3); Carbon Dioxide 45 mEq/L (23-29); Chloride 91 mEq/L (98-107); Globulin 2.1 g/dL (2.4-3.5); Glucose 178 mg/dL (70-105); Osmolality,Calculated 307 (280-300); Sodium 142 mEq/L (136-145); Total Protein 7.1 g/dL (6.4-8.9)
[2022-08-22] MEDS: *HR* Heparin 5,000 UNIT/ML VIAL SQ SCH ×3 (05:05→21:45)
[2022-08-22] MEDS: Budesonide/Formoterol 160/4.5 1 PUFF INH IH SCH ×2 (08:10→20:15)
[2022-08-22] MEDS: atenoloL 25 MG TABLET PO SCH (08:51)
[2022-08-22] MEDS: hydrOXYzine pamoate 25 MG CAPSULE PO SCH ×3 (08:51→21:44)
[2022-08-22] MEDS: *HR* Buprenorphine HCl 8 MG TAB.SUBL SL SCH ×2 (08:51→21:44)
[2022-08-22] MEDS: Artificial Tears SOLN 15 ML BOTTLE BOTH EYES SCH ×4 (08:52→21:43)
[2022-08-22] MEDS: Insulin LISPRO 300 UNITS/3 ML VIAL SUBQ SCH ×4 (10:06→21:44)
[2022-08-22] MEDS: *HR* LORazepam 0.5 MG TABLET PO PRN (10:07)
[2022-08-22] MEDS ORDERED: Melatonin 3 MG TABLET PO PRN (18:23)
[2022-08-22] MEDS ORDERED: Dextrose Gel 15 GM/37.5 ML TUBE PO PRN ×2 (18:23)
[2022-08-22] MEDS ORDERED: Ondansetron ODT 4 MG TAB.RAPDIS SL PRN (18:23)
[2022-08-22] MEDS ORDERED: *HR* Dextrose 50 % in Water (Syg) 50 ML SYRINGE IVP PRN (18:23)
[2022-08-22] MEDS ORDERED: D5% in Water 1,000 ML IVC PRN (18:23)
[2022-08-22] MEDS ORDERED: Naloxone 0.4 MG/ML INJ IVP PRN (18:23)
[2022-08-23] MEDS: Ipratropium 1 PUFF INHALER IH SCH ×6 (04:16→23:23)
[2022-08-23 04:22] LABS: Basophils % 0.1 %; Eosinophils % 0.1 %; Hematocrit 39.7 % (35.3-44.9); Immature Granulocytes % 0.5 % (0-4); Lymphocytes # 1.3 K/mcL (0.6-4.6); Lymphocytes % 14.5 %; Mean Corpuscular HGB Conc 30.2 g/dL (31.6-35.5); Mean Corpuscular Hemoglobin 29.1 pg (28.0-33.3); Mean Corpuscular Volume 96.4 fL (83.0-100.0); Mean Platelet Volume 12.3 fL (9.4-12.4); Monocytes # 0.9 K/mcL (0.0-1.3); Monocytes % 9.7 %; Neutrophils # 6.6 K/mcL (1.6-8.9); Platelet Count 142 K/mcL (140-400); Red Blood Count 4.12 M/mcL (3.82-4.97); Red Cell Distribution Width 13.2 % (11.5-14.5); Segmented Neutrophils % 75.1 %; White Blood Count 8.7 K/mcL (4.3-11.1)
[2022-08-23] MEDS: *HR* Heparin 5,000 UNIT/ML VIAL SQ SCH ×3 (05:18→20:58)
[2022-08-23] MEDS: Budesonide/Formoterol 160/4.5 1 PUFF INH IH SCH ×2 (07:40→20:01)
[2022-08-23] MEDS: Insulin LISPRO 300 UNITS/3 ML VIAL SUBQ SCH ×4 (08:07→20:59)
[2022-08-23] MEDS: Artificial Tears SOLN 15 ML BOTTLE BOTH EYES SCH ×4 (08:08→20:59)
[2022-08-23] MEDS: *HR* Buprenorphine HCl 8 MG TAB.SUBL SL SCH ×2 (08:09→20:58)
[2022-08-23] MEDS: Acetaminophen 325 MG TABLET PO PRN (08:09)
[2022-08-23] MEDS: hydrOXYzine pamoate 25 MG CAPSULE PO SCH ×3 (08:10→20:58)
[2022-08-23] MEDS: atenoloL 25 MG TABLET PO SCH (08:10)
[2022-08-24] MEDS: Acetaminophen 325 MG TABLET PO PRN ×2 (01:56→08:24)
[2022-08-24 03:15] LABS: Alanine Aminotransferase 12 Units/L (7-52); Albumin 4.5 g/dL (3.5-5.7); Alkaline Phosphatase 54 Units/L (34-104); Aspartate Amino Transferase 12 Units/L (13-39); BUN/Creatinine Ratio 41 (6-26); Bilirubin,Total 0.4 mg/dL (0.3-1.0); Blood Urea Nitrogen 31 mg/dL (6-20); Calcium 9.9 mg/dL (8.6-10.3); Carbon Dioxide 41 mEq/L (23-29); Chloride 94 mEq/L (98-107); Globulin 2.3 g/dL (2.4-3.5); Glucose 155 mg/dL (70-105); Osmolality,Calculated 300 (280-300); Potassium 4.5 mEq/L (3.5-5.1); Sodium 140 mEq/L (136-145); Total Protein 6.8 g/dL (6.4-8.9)
[2022-08-24] MEDS ORDERED: Gabapentin 300 MG CAPSULE PO ONE ×2 (03:30→08:43)
[2022-08-24] MEDS: Ipratropium 1 PUFF INHALER IH SCH ×3 (04:08→11:17)
[2022-08-24] MEDS: *HR* Heparin 5,000 UNIT/ML VIAL SQ SCH (05:21)
[2022-08-24] MEDS: Budesonide/Formoterol 160/4.5 1 PUFF INH IH SCH (07:43)
[2022-08-24] MEDS: *HR* Buprenorphine HCl 8 MG TAB.SUBL SL SCH (08:24)
[2022-08-24] MEDS: atenoloL 25 MG TABLET PO SCH (08:24)
[2022-08-24] MEDS: hydrOXYzine pamoate 25 MG CAPSULE PO SCH (08:24)
[2022-08-24] MEDS: Artificial Tears SOLN 15 ML BOTTLE BOTH EYES SCH (08:33)
[2022-08-24] MEDS: Insulin LISPRO 300 UNITS/3 ML VIAL SUBQ SCH (08:33)
[2022-08-24 09:05] VITALS: O2SAT 92
[2022-08-24 09:09] VITALS: BP 124/67; PULSE 63; TEMP 98.4
== END 2022-08-24 14:08 | disposition home health service (06) | DRG 137 ==
LOC: 2NNU 18:49 → EMEROOARM 18:49 → SUATTDRO 23:48 → 2NNU 08-16 01:09 → ICNU 08-16 07:59 → 2NENU 08-22 15:26
PROVIDERS: ADMIT Internal Medicine; ATTEND Internal Medicine

== ENCOUNTER 2022-09-24 10:59 | Inpatient (IN) ==
[2022-09-24] MEDS ORDERED: Ipratropium/Albuterol Neb 3 ML IH ONE (13:08)
[2022-09-24] MEDS ORDERED: methylPREDNISolone 125 MG/2 ML VIAL IVP ONE (13:08)
[2022-09-24 14:00] LABS: ABG Base Excess 14 mEq/L (-2 to 3); ABG HCO3 47 mEq/L (21-27); ABG Oxygen Saturation 90 % (95-98); ABG PCO2 114 mmHg (35-45); ABG PH 7.23 pH Units (7.32-7.45); ABG PO2 75 mmHg (85-104); ABG TCO2 > 50 mEq/L (20-26)
[2022-09-24 14:12] LABS: Basophils % 0.2 %; Hemoglobin 12.1 g/dL (11.5-15.4); Mean Corpuscular Hemoglobin 29.6 pg (28.0-33.3); Mean Platelet Volume 10.7 fL (9.4-12.4); Red Blood Count 4.09 M/mcL (3.82-4.97); Red Cell Distribution Width 13.2 % (11.5-14.5)
[2022-09-24] MEDS: Furosemide 40 MG/4 ML VIAL IVP ONE ×2 (14:13→14:27)
[2022-09-24 14:14] LABS: Eosinophils % 0.5 %; Hematocrit 41.6 % (35.3-44.9); Immature Granulocytes % 0.5 % (0-4); Lymphocytes # 1.2 K/mcL (0.6-4.6); Lymphocytes % 14.4 %; Mean Corpuscular HGB Conc 29.1 g/dL (31.6-35.5); Mean Corpuscular Volume 101.7 fL (83.0-100.0); Monocytes # 0.6 K/mcL (0.0-1.3); Monocytes % 7.8 %; Neutrophils # 6.3 K/mcL (1.6-8.9); Platelet Count 258 K/mcL (140-400); Segmented Neutrophils % 76.6 %; White Blood Count 8.2 K/mcL (4.3-11.1)
[2022-09-24] MEDS ORDERED: Furosemide 40 MG TABLET PO STA (14:20)
[2022-09-24 14:21] LABS: Adenovirus Not Detected (Not Detect); Coronavirus 229E Not Detected (Not Detect); Coronavirus HKU1 Not Detected (Not Detect); Coronavirus NL63 Not Detected (Not Detect); Coronavirus OC43 Not Detected (Not Detect); Human Metapneumovirus Not Detected (Not Detect); Human Rhinovirus/Enterovirus Not Detected (Not Detect); Influenza A Subtype 2009 H1 Not Detected (Not Detect); Influenza B Not Detected (Not Detect); Parainfluenza Virus 1 Not Detected (Not Detect); Parainfluenza Virus 2 Not Detected (Not Detect); SARS-CoV-2 Not Detected (Not Detect)
[2022-09-24 14:22] LABS: Bordetella Pertussis Not Detected (Not Detect); Chlamydophila pneumoniae Not Detected (Not Detect); Mycoplasma pneumoniae Not Detected (Not Detect); Parainfluenza Virus 3 Not Detected (Not Detect); Parainfluenza Virus 4 Not Detected (Not Detect); Respiratory Syncytial Virus Not Detected (Not Detect)
[2022-09-24 14:29] LABS: Anisocytosis 1+ (Not Present); Hypochromasia Present (Not Present); Platelet Estimate Normal (Normal)
[2022-09-24 14:42] LABS: Alanine Aminotransferase 10 Units/L (7-52); Albumin 3.9 g/dL (3.5-5.7); Albumin/Globulin Ratio 1.1 (1.1-2.2); Alkaline Phosphatase 84 Units/L (34-104); Aspartate Amino Transferase 20 Units/L (13-39); BUN/Creatinine Ratio 18 (6-26); Bilirubin,Indirect 0.5 mg/dL (0.0-1.0); Bilirubin,Total 0.5 mg/dL (0.3-1.0); Blood Urea Nitrogen 13 mg/dL (6-20); Calcium 9.8 mg/dL (8.6-10.3); Carbon Dioxide > 45 mEq/L (23-29); Chloride 90 mEq/L (98-107); Globulin 3.4 g/dL (2.4-3.5); Glucose 126 mg/dL (70-105); Osmolality,Calculated 288 (280-300); Potassium 4.8 mEq/L (3.5-5.1); Sodium 138 mEq/L (136-145); Total Protein 7.3 g/dL (6.4-8.9); Troponin I < 0.03 ng/mL (< 0.04)
[2022-09-24] MEDS ORDERED: cefTRIAXone 1,000 MG in 0.9 % Sodium Chloride 10 ML IVP ONE (15:19)
[2022-09-24] MEDS ORDERED: Naloxone 0.4 MG/ML INJ IVP PRN (15:33)
[2022-09-24] MEDS ORDERED: Acetaminophen 325 MG TABLET PO PRN (15:33)
[2022-09-24] MEDS ORDERED: Ondansetron 4 MG/2 ML VIAL IVP PRN (15:33)
[2022-09-24 17:21] LABS: ABG Base Excess 20 mEq/L (-2 to 3); ABG HCO3 52 mEq/L (21-27); ABG Oxygen Saturation 79 % (95-98); ABG PCO2 98 mmHg (35-45); ABG PH 7.34 pH Units (7.32-7.45); ABG PO2 51 mmHg (85-104); ABG TCO2 > 50 mEq/L (20-26)
[2022-09-24 20:51] LABS: ABG Base Excess 25 mEq/L (-2 to 3); ABG HCO3 57 mEq/L (21-27); ABG Oxygen Saturation 90 % (95-98); ABG PCO2 97 mmHg (35-45); ABG PH 7.37 pH Units (7.32-7.45); ABG PO2 66 mmHg (85-104); ABG TCO2 > 50 mEq/L (20-26); Blood Gas Modality avaps; Blood Gas VT 500 cc
[2022-09-25] MEDS ORDERED: QUEtiapine Fumarate 25 MG TABLET PO PRN (00:29)
[2022-09-25 04:09] LABS: Basophils % 0.2 %; Hematocrit 38.6 % (35.3-44.9); Hemoglobin 11.7 g/dL (11.5-15.4); Immature Granulocytes % 0.5 % (0-4); Lymphocytes # 0.5 K/mcL (0.6-4.6); Lymphocytes % 7.9 %; Mean Corpuscular HGB Conc 30.3 g/dL (31.6-35.5); Mean Corpuscular Hemoglobin 29.2 pg (28.0-33.3); Mean Corpuscular Volume 96.3 fL (83.0-100.0); Mean Platelet Volume 10.9 fL (9.4-12.4); Monocytes # 0.1 K/mcL (0.0-1.3); Monocytes % 1.1 %; Neutrophils # 5.7 K/mcL (1.6-8.9); Platelet Count 248 K/mcL (140-400); Red Blood Count 4.01 M/mcL (3.82-4.97); Red Cell Distribution Width 12.8 % (11.5-14.5); Segmented Neutrophils % 90.3 %; White Blood Count 6.3 K/mcL (4.3-11.1)
[2022-09-25 04:13] LABS: VBG HCO3 41 mEq/L (21-27); VBG PCO2 78 mmHg (41-51); VBG PH 7.33 pH Units (7.32-7.42); VBG PO2 154 mmHg (25-50)
[2022-09-25 04:30] LABS: BUN/Creatinine Ratio 25 (6-26); Blood Urea Nitrogen 18 mg/dL (6-20); Calcium 9.5 mg/dL (8.6-10.3); Carbon Dioxide > 45 mEq/L (23-29); Chloride 87 mEq/L (98-107); Glucose 186 mg/dL (70-105); Magnesium 1.6 mg/dL (1.6-2.6); Osmolality,Calculated 291 (280-300); Potassium 4.2 mEq/L (3.5-5.1); Sodium 137 mEq/L (136-145)
[2022-09-25] MEDS: *HR* Enoxaparin 40 MG/0.4 ML SYRINGE SQ SCH (06:10)
[2022-09-25] MEDS ORDERED: Gabapentin 300 MG CAPSULE PO PRN (08:22)
[2022-09-25] MEDS ORDERED: *HR* LORazepam 0.5 MG TABLET PO PRN (08:25)
[2022-09-25] MEDS: Ipratropium/Albuterol Neb 3 ML IH PRN ×3 (08:35→15:54)
[2022-09-25] MEDS: Magnesium Oxide 400 MG TABLET PO SCH (08:36)
[2022-09-25] MEDS: Azithromycin 250 MG TABLET PO SCH (08:36)
[2022-09-25] MEDS: Cholecalciferol (D-3) 1,000 UNIT (25MCG) TABLET PO SCH (08:36)
[2022-09-25] MEDS: atenoloL 25 MG TABLET PO SCH (08:37)
[2022-09-25] MEDS: Furosemide 40 MG/4 ML VIAL IVP SCH ×2 (08:37→08:42)
[2022-09-25] MEDS: methylPREDNISolone 125 MG/2 ML VIAL IVP SCH ×2 (08:51→15:54)
[2022-09-25] MEDS ORDERED: Buprenorphine Hcl/Naloxone Hcl [Suboxone 8 Mg-2 Mg] SL SCH (09:00)
[2022-09-25] MEDS: Furosemide 40 MG TABLET PO SCH (11:03)
[2022-09-25] MEDS: *HR* Buprenorphine HCl 8 MG TAB.SUBL SL SCH ×2 (15:54→20:58)
[2022-09-25] MEDS ORDERED: Melatonin 3 MG TABLET PO PRN (22:40)
[2022-09-25] MEDS: hydrOXYzine pamoate 25 MG CAPSULE PO PRN (23:20)
[2022-09-26] MEDS: methylPREDNISolone 125 MG/2 ML VIAL IVP SCH ×2 (00:16→09:00)
[2022-09-26 06:32] LABS: VBG HCO3 49 mEq/L (21-27); VBG PCO2 84 mmHg (41-51); VBG PH 7.38 pH Units (7.32-7.42); VBG PO2 163 mmHg (25-50)
[2022-09-26 06:52] LABS: Hematocrit 35.2 % (35.3-44.9); Hemoglobin 10.6 g/dL (11.5-15.4); Immature Granulocytes % 0.4 % (0-4); Lymphocytes # 0.7 K/mcL (0.6-4.6); Mean Corpuscular HGB Conc 30.1 g/dL (31.6-35.5); Mean Corpuscular Hemoglobin 29.8 pg (28.0-33.3); Mean Corpuscular Volume 98.9 fL (83.0-100.0); Mean Platelet Volume 10.9 fL (9.4-12.4); Monocytes # 0.5 K/mcL (0.0-1.3); Monocytes % 5.8 %; Neutrophils # 7.9 K/mcL (1.6-8.9); Platelet Count 241 K/mcL (140-400); Red Blood Count 3.56 M/mcL (3.82-4.97); Red Cell Distribution Width 13.1 % (11.5-14.5); Segmented Neutrophils % 85.8 %; White Blood Count 9.2 K/mcL (4.3-11.1)
[2022-09-26 07:22] LABS: Triiodothyronine (T3) Free 2.24 pg/mL (2.50-3.90)
[2022-09-26 07:23] LABS: Thyroid Stimulating Hormone 0.427 mcIU/mL (0.340-5.600)
[2022-09-26 07:51] LABS: BUN/Creatinine Ratio 32 (6-26); Blood Urea Nitrogen 21 mg/dL (6-20); Calcium 9.2 mg/dL (8.6-10.3); Carbon Dioxide > 45 mEq/L (23-29); Chloride 86 mEq/L (98-107); Glucose 165 mg/dL (70-105); Magnesium 1.8 mg/dL (1.6-2.6); Osmolality,Calculated 293 (280-300); Sodium 138 mEq/L (136-145)
[2022-09-26] MEDS: Ipratropium/Albuterol Neb 3 ML IH PRN ×3 (08:11→22:54)
[2022-09-26] MEDS: Furosemide 40 MG TABLET PO SCH (09:00)
[2022-09-26] MEDS: *HR* Enoxaparin 40 MG/0.4 ML SYRINGE SQ SCH (09:00)
[2022-09-26] MEDS: Azithromycin 250 MG TABLET PO SCH (09:00)
[2022-09-26] MEDS: *HR* Buprenorphine HCl 8 MG TAB.SUBL SL SCH ×2 (09:00→23:24)
[2022-09-26] MEDS: Cholecalciferol (D-3) 1,000 UNIT (25MCG) TABLET PO SCH (09:00)
[2022-09-26] MEDS: Magnesium Oxide 400 MG TABLET PO SCH (09:00)
[2022-09-26] MEDS: atenoloL 25 MG TABLET PO SCH (09:01)
[2022-09-26] MEDS: hydrOXYzine pamoate 25 MG CAPSULE PO PRN (09:09)
[2022-09-26] MEDS ORDERED: *HR* LORazepam 0.5 MG TABLET PO PRN (09:39)
[2022-09-26] MEDS ORDERED: predniSONE 20 MG TABLET PO SCH (09:45)
[2022-09-26] MEDS: Nystatin SUSP 5 ML UD.LIQ BC SCH ×3 (12:46→21:46)
[2022-09-26] MEDS ORDERED: Melatonin 3 MG TABLET PO SCH (21:00)
[2022-09-27] MEDS: *HR* Enoxaparin 40 MG/0.4 ML SYRINGE SQ SCH (06:29)
[2022-09-27] MEDS: Cholecalciferol (D-3) 1,000 UNIT (25MCG) TABLET PO SCH (08:26)
[2022-09-27] MEDS: Furosemide 40 MG TABLET PO SCH (08:26)
[2022-09-27] MEDS: Magnesium Oxide 400 MG TABLET PO SCH (08:26)
[2022-09-27] MEDS: Azithromycin 250 MG TABLET PO SCH (08:27)
[2022-09-27] MEDS: *HR* Buprenorphine HCl 8 MG TAB.SUBL SL SCH ×3 (08:27→23:46)
[2022-09-27] MEDS: atenoloL 25 MG TABLET PO SCH (08:27)
[2022-09-27] MEDS: Nystatin SUSP 5 ML UD.LIQ BC SCH ×4 (08:27→23:46)
[2022-09-27] MEDS ORDERED: predniSONE 20 MG TABLET PO SCH (09:00)
[2022-09-27 13:15] LABS: Basophils % 0.1 %; Eosinophils % 0.1 %; Hematocrit 38.5 % (35.3-44.9); Hemoglobin 11.4 g/dL (11.5-15.4); Immature Granulocytes % 0.4 % (0-4); Mean Corpuscular HGB Conc 29.6 g/dL (31.6-35.5); Mean Corpuscular Hemoglobin 29.2 pg (28.0-33.3); Mean Corpuscular Volume 98.7 fL (83.0-100.0); Monocytes # 0.7 K/mcL (0.0-1.3); Monocytes % 8.7 %; Neutrophils # 6.7 K/mcL (1.6-8.9); Platelet Count 227 K/mcL (140-400); Red Cell Distribution Width 13.6 % (11.5-14.5); Segmented Neutrophils % 78.7 %; White Blood Count 8.5 K/mcL (4.3-11.1)
[2022-09-27 13:33] LABS: VBG HCO3 49 mEq/L (21-27); VBG PCO2 84 mmHg (41-51); VBG PH 7.38 pH Units (7.32-7.42); VBG PO2 149 mmHg (25-50)
[2022-09-27 14:25] LABS: BUN/Creatinine Ratio 29 (6-26); Blood Urea Nitrogen 24 mg/dL (6-20); Carbon Dioxide > 45 mEq/L (23-29); Chloride 89 mEq/L (98-107); Glucose 226 mg/dL (70-105); Magnesium 1.7 mg/dL (1.6-2.6); Osmolality,Calculated 295 (280-300); Potassium 3.5 mEq/L (3.5-5.1); Sodium 137 mEq/L (136-145)
[2022-09-27] MEDS: Ipratropium/Albuterol Neb 3 ML IH PRN ×2 (15:08→21:39)
[2022-09-27] MEDS: ALPRAZolam 0.5 MG TABLET PO SCH (23:46)
[2022-09-28] MEDS: *HR* Enoxaparin 40 MG/0.4 ML SYRINGE SQ SCH (06:17)
[2022-09-28] MEDS: Furosemide 40 MG TABLET PO SCH (09:32)
[2022-09-28] MEDS: Magnesium Oxide 400 MG TABLET PO SCH (09:33)
[2022-09-28] MEDS: Nystatin SUSP 5 ML UD.LIQ BC SCH ×4 (09:38→20:23)
[2022-09-28] MEDS: predniSONE 20 MG TABLET PO SCH (09:38)
[2022-09-28] MEDS: Azithromycin 250 MG TABLET PO SCH (09:39)
[2022-09-28] MEDS: atenoloL 25 MG TABLET PO SCH (09:39)
[2022-09-28] MEDS: Cholecalciferol (D-3) 1,000 UNIT (25MCG) TABLET PO SCH (09:39)
[2022-09-28] MEDS: hydrOXYzine pamoate 25 MG CAPSULE PO PRN (09:49)
[2022-09-28] MEDS: Ipratropium/Albuterol Neb 3 ML IH PRN ×3 (10:38→20:10)
[2022-09-28 12:10] LABS: Basophils % 0.1 %; Eosinophils % 0.2 %; Hemoglobin 12.3 g/dL (11.5-15.4); Immature Granulocytes % 0.5 % (0-4); Lymphocytes # 2.9 K/mcL (0.6-4.6); Lymphocytes % 34.2 %; Mean Corpuscular Hemoglobin 29.8 pg (28.0-33.3); Mean Corpuscular Volume 99.3 fL (83.0-100.0); Mean Platelet Volume 10.9 fL (9.4-12.4); Monocytes % 11.4 %; Neutrophils # 4.5 K/mcL (1.6-8.9); Platelet Count 185 K/mcL (140-400); Red Blood Count 4.13 M/mcL (3.82-4.97); Red Cell Distribution Width 13.7 % (11.5-14.5); Segmented Neutrophils % 53.6 %; White Blood Count 8.5 K/mcL (4.3-11.1)
[2022-09-28] MEDS: *HR* Buprenorphine HCl 8 MG TAB.SUBL SL SCH ×2 (12:11→20:22)
[2022-09-28 12:34] LABS: BUN/Creatinine Ratio 28 (6-26); Blood Urea Nitrogen 20 mg/dL (6-20); Carbon Dioxide > 45 mEq/L (23-29); Chloride 92 mEq/L (98-107); Glucose 123 mg/dL (70-105); Magnesium 1.9 mg/dL (1.6-2.6); Osmolality,Calculated 288 (280-300); Potassium 3.2 mEq/L (3.5-5.1); Sodium 137 mEq/L (136-145)
[2022-09-28 12:37] LABS: VBG HCO3 50 mEq/L (21-27); VBG PCO2 94 mmHg (41-51); VBG PH 7.33 pH Units (7.32-7.42); VBG PO2 160 mmHg (25-50)
[2022-09-28] MEDS: ALPRAZolam 0.5 MG TABLET PO SCH (23:30)
[2022-09-29 05:38] LABS: Hematocrit 37.1 % (35.3-44.9); Hemoglobin 11.2 g/dL (11.5-15.4); Mean Corpuscular HGB Conc 30.2 g/dL (31.6-35.5); Mean Corpuscular Hemoglobin 29.2 pg (28.0-33.3); Mean Corpuscular Volume 96.9 fL (83.0-100.0); Mean Platelet Volume 11.2 fL (9.4-12.4); Platelet Count 196 K/mcL (140-400); Red Blood Count 3.83 M/mcL (3.82-4.97); Red Cell Distribution Width 13.2 % (11.5-14.5); White Blood Count 10.2 K/mcL (4.3-11.1)
[2022-09-29 05:39] LABS: VBG HCO3 46 mEq/L (21-27); VBG PCO2 86 mmHg (41-51); VBG PH 7.34 pH Units (7.32-7.42); VBG PO2 96 mmHg (25-50)
[2022-09-29 06:05] LABS: BUN/Creatinine Ratio 29 (6-26); Blood Urea Nitrogen 24 mg/dL (6-20); Calcium 8.7 mg/dL (8.6-10.3); Carbon Dioxide > 45 mEq/L (23-29); Chloride 88 mEq/L (98-107); Glucose 165 mg/dL (70-105); Magnesium 1.9 mg/dL (1.6-2.6); Osmolality,Calculated 294 (280-300); Potassium 3.9 mEq/L (3.5-5.1); Sodium 138 mEq/L (136-145)
[2022-09-29] MEDS: ALPRAZolam 0.5 MG TABLET PO SCH (07:40)
[2022-09-29] MEDS: Nystatin SUSP 5 ML UD.LIQ BC SCH (08:45)
[2022-09-29] MEDS: *HR* Enoxaparin 40 MG/0.4 ML SYRINGE SQ SCH (08:45)
[2022-09-29] MEDS: Magnesium Oxide 400 MG TABLET PO SCH (08:45)
[2022-09-29] MEDS: *HR* Buprenorphine HCl 8 MG TAB.SUBL SL SCH (08:45)
[2022-09-29] MEDS: Azithromycin 250 MG TABLET PO SCH (08:46)
[2022-09-29] MEDS: atenoloL 25 MG TABLET PO SCH (08:46)
[2022-09-29] MEDS: Cholecalciferol (D-3) 1,000 UNIT (25MCG) TABLET PO SCH (08:46)
[2022-09-29] MEDS: Furosemide 40 MG TABLET PO SCH (08:46)
[2022-09-29] MEDS: predniSONE 20 MG TABLET PO SCH (08:46)
[2022-09-29] MEDS: hydrOXYzine pamoate 25 MG CAPSULE PO PRN (08:50)
[2022-09-29 09:00] VITALS: BP 112/60
[2022-09-29] MEDS: Ipratropium/Albuterol Neb 3 ML IH PRN (13:08)
[2022-09-29 15:03] VITALS: PULSE 80; TEMP 98.2; O2SAT 92
== END 2022-09-29 14:56 | disposition home or self-care (01) | DRG 194 ==
LOC: 2NNU 10:59 → EMEROOARM 10:59 → SUATTDRO 15:38 → 2NNU 16:54 → 2NENU 09-25 12:57
PROVIDERS: ADMIT Pharmacist; ATTEND Internal Medicine